=== PATIENT | female | born 1955 | race American Indian/Alaskan Native ===

== ENCOUNTER 2020-09-25 12:17 | Outpatient (REF) | payer MEDICARE, MEDICAID, SELFPAY | END 2020-09-25 12:18 | disposition home or self-care (01) | LOC: HO.LAB 12:17 | PROVIDERS: PCP Internal Medicine; Visit Provider Internal Medicine | DX: Z20.828 Contact with and (suspected) exposure to other viral communicable diseases (principal) | CPT/HCPCS: C9803; U0003 ==

== ENCOUNTER 2022-07-18 12:07 | Outpatient (REF) | payer MEDICARE, MEDICAID, SELFPAY ==
--- NOTE | 2022-07-18 16:43 | MHC.AU.HAS ---
Hearing Aid Evaluation Date of Visit: 07/18/22 Svp Programmatic Tv Used: Albanian- In Person Historical Information: Description of Hearing: Right ear - Borderline normal sloping to severe sensorineural hearing loss with 92% speech understanding Left ear - Moderate to severe mixed hearing loss with 84% speech discrimination Current personal amplification information, if applicable: NONE Summary: Due to the significant asymmetric hearing loss, patient is experiencing difficulty understanding speech. Medical clearance ENT in chart. Advise binaural hearing aids to better facilitate communication. Discussed and showed examples of appropriate styles of hearing aids. Patient would like to try custom [id number] hearing aids. Hearing Aid Prescription: Based on the individual?s shared listening needs, communication environments, dexterity, desire for connectivity, and personal preferences, the following prescription for amplification has been made: Right ear: Extrusion Utility Worker: Phonak Model: Virto P 70-312 Battery Size: 312 Color: Soto Industrial Refrigeration Mechanic: Medium Left ear: Extrusion Utility Worker: Phonak Model: Virto P 70-312 Battery Size: 312 Color: Soto Industrial Refrigeration Mechanic: Super Power Action Taken/Action Needed: [place] Impressions Taken Hearing Instrument Fitting to be scheduled when materials arrive Primary Diagnosis: H90.3 Bilateral Sensorineural Hearing Loss Signature:Provider: Krystian Dallas, CCC-A
== END 2022-07-18 12:08 | disposition home or self-care (01) ==
LOC: HO.SH 12:07
PROVIDERS: Visit Provider Internal Medicine
DX: Z46.1 Encounter for fitting and adjustment of hearing aid (principal); H90.3 Sensorineural hearing loss, bilateral
CPT/HCPCS: 92591; V5275

== ENCOUNTER 2022-09-05 10:04 | Outpatient (REF) | payer MEDICARE, MEDICAID, SELFPAY | END 2022-09-05 10:05 | disposition home or self-care (01) | LOC: HO.HAP 10:04 | PROVIDERS: Visit Provider Internal Medicine | DX: Z46.1 Encounter for fitting and adjustment of hearing aid (principal); H90.3 Sensorineural hearing loss, bilateral | CPT/HCPCS: V5011; V5020; V5160; V5259; V5266 ==

== ENCOUNTER 2022-09-19 12:33 | Outpatient (REF) | payer MEDICARE, MEDICAID, SELFPAY | END 2022-09-19 12:34 | disposition home or self-care (01) | LOC: HO.HAP 12:33 | PROVIDERS: Visit Provider Internal Medicine | DX: Z13.89 Encounter for screening for other disorder (principal) ==

== ENCOUNTER 2023-05-05 10:13 | Outpatient (REF) | payer MEDICARE, MEDICAID, SELFPAY ==
[2023-05-05 10:27] LABS: MANUAL DIFF FLAG NO
[2023-05-05 11:08] LABS: Basophils Absolute Auto 0.1 X10*3/uL (0.0-0.2); Basophils Percent Auto 0.7 % (0-2); Eosinophils Absolute Auto 0.3 X10*3/uL (0.0-0.4); Eosinophils Percent Auto 3.7 % (0-4); Hematocrit 44.2 % (37.0-47.0); Hemoglobin 14.1 g/dl (12.0-16.0); Imm Gran Abs Auto 0.04 X10*3/uL (0.00-0.03); Imm Gran Pct Auto 0.4 % (0.0-0.4); Lymphocytes Absolute Auto 2.7 X10*3/uL (1.2-4.9); Lymphocytes Percent Auto 30.3 % (20-40); Mean Corpuscular HGB Conc 31.9 g/dl (31.0-35.0); Mean Corpuscular Hemoglobin 28.1 pg (27.0-33.0); Mean Corpuscular Volume 88.2 fL (80.0-98.0); Mean Platelet Volume 11.7 fL (9.4-12.3); Monocytes Absolute Auto 0.6 X10*3/uL (0.1-1.2); Monocytes Percent Auto 6.9 % (2-11); Neutrophils Absolute Auto 5.2 x10*3/uL (2.0-8.3); Platelet Count 272 X10*3/uL (160-400); Red Blood Count 5.01 X10*6/uL (4.20-5.50); Red Cell Distribution Width 13.8 % (11.0-16.0)
[2023-05-05 11:51] LABS: Alanine Aminotransferase 13 U/L (0-31); Alkaline Phosphatase 109 U/L (39-117); Anion Gap 14 (12-20); Aspartate Amino Transferase 18 U/L (5-31); Bilirubin Total 0.6 mg/dL (0.0-1.0); Blood Urea Nitrogen 16 mg/dL (9-16); Calcium 9.5 mg/dL (8.4-10.2); Carbon Dioxide 25 mmol/L (22-29); Chloride 105 mmol/L (96-108); Cholesterol 176 mg/dL; Estimated Glomerular Filt Rate > 60; Glucose Fasting 102 mg/dL (60-99); HDL Cholesterol 46 mg/dL; LDL Cholesterol Calculated 98 mg/dl; Potassium 3.8 mmol/L (3.3-5.1); Sodium 140 mmol/L (135-145); Total Protein 7.1 g/dL (6.5-8.0); Triglycerides 160 mg/dL
[2023-05-05 12:11] LABS: TSH reflex Free T4 2.16 uIU/mL (0.32-4.0); Vitamin D 25-OH Total 39.4 ng/mL (>30)
[2023-05-05 12:17] LABS: Folate 13.7 ng/mL (> or = 4.0); Vitamin B12 278 pg/mL (200-900)
== END 2023-05-05 10:14 | disposition home or self-care (01) ==
LOC: HO.LAB 10:13
PROVIDERS: PCP Nurse Practitioner Family; Visit Provider Nurse Practitioner Family
DX: I10 Essential (primary) hypertension (principal); E11.40 Type 2 diabetes mellitus with diabetic neuropathy, unspecified; E78.5 Hyperlipidemia, unspecified
CPT/HCPCS: 36415; 80053; 80061; 82306; 82607; 82746; 84443; 85025

== ENCOUNTER 2023-05-08 11:35 | Outpatient (REF) | payer MEDICARE, MEDICAID, SELFPAY ==
[2023-05-08 14:26] LABS: Microalbum/Creatinine Ratio Ur 12.6 ug/mg cr
== END 2023-05-08 11:36 | disposition home or self-care (01) ==
LOC: HO.LNP 11:35
PROVIDERS: Visit Provider Nurse Practitioner Family
DX: E11.9 Type 2 diabetes mellitus without complications (principal)
CPT/HCPCS: 82043

== ENCOUNTER 2023-07-23 10:02 | Outpatient (REF) | payer MEDICARE, MEDICAID, SELFPAY | END 2023-07-23 10:03 | disposition home or self-care (01) | LOC: HO.HAP 10:02 | PROVIDERS: Visit Provider Nurse Practitioner Family | DX: Z46.1 Encounter for fitting and adjustment of hearing aid (principal); H90.3 Sensorineural hearing loss, bilateral | CPT/HCPCS: V5266 ==

== ENCOUNTER 2023-09-16 10:39 | Outpatient (AMB) | payer MEDICARE, MEDICAID, SELFPAY ==
--- NOTE | 2023-09-16 10:44 | MHC.OFFVIS ---
Intake Vital Signs 09/16/23 10:47 Height 4 ft 11 in Weight 180 lb 12.465 oz BMI 36.5 BP 116/70 Blood Pressure Location Lt brachial Position Sitting Pulse 68 Intake Visit Reasons: [employer]/[place]/hypertension Intake Note: NPV w/ EKG Counseling Center Director Required: No Accompanied by: Daughter Allergies sulfamethoxazole Allergy (Unknown, Verified 09/16/23 10:48) Rash Medication List - Last Reconciled 09/16/23 by Abdi Soriano MD aspirin (Adult Low Dose Aspirin) 81 mg PO DAILY atorvastatin 40 mg PO DAILY dulaglutide (Trulicity) 1.5 mg subcut QWEEK insulin detemir U-100 15 units (0.15 mL) subcut BEDTIME metformin 850 mg PO TID metoprolol succinate ER 100 mg PO DAILY nifedipine ER 60 mg PO DAILY pregabalin 100 mg PO TID HPI HPI Comments History of Present Illness Details Rossy is here for consultation regarding coronary artery disease. [place] [facility] [place] and has [place] here couple of years [place]. 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 Not seen him in the last few years. She states she had a heart attack around 22 years ago, 2000 or so. After that, apparently underwent coronary bypass surgery at [facility]. She states she did not have a formal sternotomy but rather had an incision below the left breast. Overall, has been doing okay for several years. More recently, she is noticing shortness of breath with activity. This is a frequent issue. No clear-cut angina. Main risk factors. Daughter is here for the appointment and is translating. Appropriate form signed. [facility] Medical History (Updated 09/16/23 @ 11:02 by Abdi Soriano MD) Atherosclerotic cardiovascular disease Hypovitaminosis D Dyslipidemia Essential hypertension Diabetes mellitus Surgical History History of cataract surgery History of section History of laparoscopic cholecystectomy History of tubal ligation History of shoulder surgery S/P CABG x 1 Family History Father Diabetes Mother CVD (cardiovascular disease) Myocardial infarction Son No problems noted. Daughter No problems noted. Social History Alcohol intake: never Patient Tobacco Use Status: Never used Tobacco Cognitive needs: No Hearing needs: No Vision needs: No Review of Systems Const Denies chills, Denies daytime sleepiness, Denies fatigue, Denies fever(s), Denies frequent falls, Denies night sweats, Denies snoring, Denies weakness, Denies weight gain and Denies weight loss Eyes Denies loss of vision ENT Denies dizziness and Denies hearing loss Card Denies chest pain, Denies chest pain with activity, Denies syncope, Denies rapid heart rate, Denies edema, Denies claudication, Denies lightheadedness, Denies palpitations, Denies dyspnea on exertion and Denies orthopnea Resp Denies cough, Denies excessive phlegm production, Denies dyspnea on exertion, Denies snoring and Denies wheezing GI Denies abdominal pain, Denies hematochezia, Denies change in bowel habits, Denies change in stool character, Denies heartburn, Denies nausea and Denies vomiting Denies hematuria, Denies urinary frequency and Denies dysuria Musc Denies arthralgias, Denies muscle weakness, Denies numbness and Denies tingling Skin/Breast Denies nail changes and Denies rash Neuro Denies Abnormal speech present, Denies dizziness, Denies syncope, Denies frequent falls, Denies loss of vision, Denies memory loss, Denies numbness, Denies tingling and Denies weakness Psych Denies depression and Denies memory loss Endo Denies fatigue and Denies palpitations Aller/Immun Denies wheezing Physical Exam Vital Signs: Last Vital Signs Pulse 68 09/16/23 10:47 BP 116/70 09/16/23 10:47 BMI result Body Mass Index 36.5 Const General: comfortable and no acute distress Orientation/consciousness: patient oriented x3 HEENT Other: Unremarkable Head: Yes normal to inspection Neck Neck: Yes normal visual inspection Chest Chest palpation & inspection: normal inspection of the chest Resp Auscultation: clear to auscultation bilaterally Cardio Palpation: normal PMI Heart sounds: S1 normal heart sound present, S2 normal heart sound present, no gallops, no murmurs and no rubs GI Palpation (GI): Soft to palpation Back/Spine/Pelvis Other: unremarkable Skin General skin exam: no rashes or lesions noted Neuro General: patient oriented x3 Speech: No Abnormal speech present Extrem General: Yes normal to inspection Psych Mental Status: mental status grossly normal Office Procedures EKG Details: EKG with sinus rhythm at 68/Min; nonspecific ST-T changes; [place]. [id number], Complete Assessment & Plan Assessment & Plan (1) Atherosclerotic cardiovascular disease: Code(s): I25.10 - Atherosclerotic heart disease of [place] coronary artery without angina pectoris (2) S/P CABG x 1: Comment: 2000 Code(s): Z95.1 - Presence of aortocoronary bypass graft (3) Diabetes mellitus: Code(s): E11.9 - Type 2 diabetes mellitus without complications Qualifiers: Diabetes mellitus complication status: without complication Diabetes mellitus intermediate insulin use: without buttermilk drier operator use Diabetes mellitus type: type 2 Qualified Code(s): E11.9 - Type 2 diabetes mellitus without complications (4) Essential hypertension: Code(s): I10 - Essential (primary) hypertension (5) Dyslipidemia: Code(s): E78.5 - Hyperlipidemia, unspecified Plan Coronary disease, remote bypass surgery, multiple risk factors, shortness of breath. Will assess further with echocardiogram and stress perfusion imaging study. Will need to contact her plant technical specialist from [place] for records- Dr.Davor Velazquez- per daughter. Follow-up after the above. Orders: Orders CA echo transthoracic complete Today I25.10 - Atherosclerotic heart disease of [place] coronary artery without angina pectoris NM cardiolite stress test Today I25.10 - Atherosclerotic heart disease of [place] coronary artery without angina pectoris, R07.2 - Precordial pain CA stress test Today I25.10 - Atherosclerotic heart disease of [place] coronary artery without angina pectoris, R07.2 - Precordial pain Coding Level of Care Code New Pt Level 4 (07471) Diagnoses Atherosclerotic cardiovascular disease I25.10 S/P CABG x 1 Z95.1 Type 2 diabetes mellitus without complication, without long-term current use of insulin E11.9 Diabetes mellitus complication status: without complication Diabetes mellitus buttermilk drier operator insulin use: without intermediate use Diabetes mellitus type: type 2 Essential hypertension I10 Dyslipidemia E78.5 CPT Codes EKG - CPT: 94182-[id number], Complete ([id number])
[2023-09-16 10:47] VITALS: BP 116/70; PULSE 68; BMI 36.5
== END 2023-09-16 11:12 | disposition home or self-care (01) ==
PROVIDERS: PCP Nurse Practitioner Family; Visit Provider Internal Medicine
DX: I25.10 Atherosclerotic heart disease of native coronary artery without angina pectoris (principal); Z95.1 Presence of aortocoronary bypass graft; E11.9 Type 2 diabetes mellitus without complications; I10 Essential (primary) hypertension; E78.5 Hyperlipidemia, unspecified
CPT/HCPCS: 93010; 99204

== ENCOUNTER → 2023-09-16 10:39 | Outpatient (BNVA) | payer MEDICARE, MEDICAID, SELFPAY | PROVIDERS: PCP Nurse Practitioner Family; Visit Provider Internal Medicine | DX: I25.10 Atherosclerotic heart disease of native coronary artery without angina pectoris (principal); I10 Essential (primary) hypertension; E78.5 Hyperlipidemia, unspecified; E11.9 Type 2 diabetes mellitus without complications; Z95.1 Presence of aortocoronary bypass graft | CPT/HCPCS: 93005; 99202 ==

== ENCOUNTER → 2023-12-28 09:52 | Outpatient (REF) | payer MEDICARE, MEDICAID, SELFPAY ==
--- NOTE | ~2023-12-28 | NM_ITS ---
Exercise Myocardial perfusion study Indication: Precordial chest pain Technique: The patient was brought in for an exercise perfusion study on 12/28/2023. Patient performed exercise as per Chris protocol and was injected 30 mCi of sestamibi was given intravenously one target HR was achieved. Images were obtained using the SPECT gamma camera interlaced with the gating device. Images were obtained in supine position. Resting perfusion study was performed on 12/31/2023. Patient was administered 30 mCi of sestamibi intravenously at rest. Images were then obtained in supine position. Images obtained with and without CT attenuation. Total DLP 107 mGy-cm. Images were processed with the software and compared side to side in short axis, horizontal long axis and vertical long axis views. Findings: The stress perfusion study showed non attenuated images show mildly reduced uptake in the anterior anterolateral wall of the LV myocardium. Remainder of the LV myocardium is normally perfused. Attenuation corrected images show normal uptake of radiotracer in all segments of LV myocardium. The gated study shows normal LV systolic function with calculated LVEF of 74%. LV cavity is normal in size. The gated study shows normal systolic wall thickening and contraction of all segments. There is no transient ischemic dilation. Resting study shows both attenuated as well as non attenuated corrected images show normal uptake of radiotracer in all segments of LV myocardium. Gating at rest reveals normal systolic wall motion with ejection fraction at 70%. The findings are consistent with discrepant the findings are suggestive of shifting breast attenuation artifact. Overall likely normal myocardial perfusion. NM/NM cardiolite stress test Impression: 1. Normal myocardial perfusion 2. Gated LVEF is 70% 3. Transient ischemic dilatation not present Stress EKG is negative for ischemia
--- NOTE | 2023-12-28 09:59 | CA_ITS ---
Acquisition Time: 2023-12-28 10:17:28 Total Exercise Time: 00:04:59 Test Indications: PRECODIAL CHEST PAIN Medications: ASA ATORVASTATIN METOPROLOL METFORMIN INSULIN Protocol: ZARIA Max HR: 137 BPM 91% of Pred: 150 BPM Max BP: 140/070 mmHG Max Work Load: 4.6 METS Exercise stress test exercose 4 min 59 sec of Zaria protocol achieving 88% MPHR with request to stop due to fatigue and shortness of breath, with no chest pain, with moderate SOB, without arrhthymias, with normotensive response to exercise,. with baseline abnormalities, no change noted from baseline. Breathing returned to normal with rest. Nuclear images pending. Test reviewed with Dr. Serrano Referred By: Abdi Soriano Overread By: Alecia Arboleda
== END ==
LOC: HO.CARD 09:52
PROVIDERS: Visit Provider Internal Medicine
DX: R07.2 Precordial pain (principal); I25.10 Atherosclerotic heart disease of native coronary artery without angina pectoris
CPT/HCPCS: 78452; 93017; A9500

== ENCOUNTER → 2023-12-28 09:59 | Outpatient (BNV) | payer MEDICARE, MEDICAID, SELFPAY | PROVIDERS: Visit Provider Nurse Practitioner | DX: R07.2 Precordial pain (principal); R06.02 Shortness of breath | CPT/HCPCS: 78452; 93016; 93018 ==

== ENCOUNTER → 2024-01-15 13:58 | Outpatient (REF) | payer MEDICARE, MEDICAID, SELFPAY ==
--- NOTE | 2024-01-15 14:02 | CA_ITS ---
Transthoracic Echocardiogram Patient (Last, First, Middle): Rossy Orlando, Gender: Female Date of : 1955 Age: 68 Procedure Date: 01/15/2024 Procedure Type: Transthoracic Echocardiogram Location: OP Height: 149.86 cm Weight: 83.92 kg BSA: 1.78 m2 Heart Rate: 53 bpm BP: 125 / 80 mmHg Personalized Living Manager Nurse: MICHA Referring MD: Abdi Soriano MD Symptoms: I25.10 - Atherosclerotic heart disease of [place] coronary artery without... Study Quality: Fair ECG Rhythm: Bradycardia Conclusions: - Normal left ventricular size, thickness, systolic function, and wall motion. The visually estimated ejection fraction is between 60-65%. Abnormal diastolic function is noted. Spectral Doppler is indicative of an impaired relaxation filling pattern. Elevated filling pressures. - Normal right ventricular cavity size. There is low normal right ventricular systolic function. Findings Left Ventricle Normal left ventricular size, thickness, systolic function, and wall motion. The visually estimated ejection fraction is between 60-65%. Abnormal diastolic function is noted. Spectral Doppler is indicative of an impaired relaxation filling pattern. Elevated filling pressures. Right Ventricle Normal right ventricular cavity size. There is low normal right ventricular systolic function. Atria The left atrium is normal in size. The right atrium is normal in size. Aortic Valve Normal aortic valve structure and function. There is no aortic valve stenosis. There is no aortic valve regurgitation. Mitral Valve The mitral valve appears normal. There is trace mitral valve regurgitation. There is no mitral valve stenosis. Pulmonic Valve The pulmonic valve is normal. There is no pulmonic valve regurgitation. Tricuspid Valve Normal tricuspid valve structure. There is trace tricuspid valve regurgitation. Normal right atrial pressure. There is no evidence of pulmonary hypertension. Great Vessels All visible segments of the aorta are normal in size. Venous The inferior vena cava is normal in size and collapses less than 50% with inspiration. Pericardium/Pleural There is no evidence of pericardial effusion. Prior Study Comparison No prior study available for comparison. Measurements 2D Linear Measurements IVSd: 0.63 0.6-0.9/0.6-1.0 cm LVIDd: 4.02 3.9-5.3/4.2-5.9 cm LVIDd Index: 2.26 2.4-3.2/2.2-3.1 cm/m2 LVIDs: 2.09 2.0-3.6 cm LVPWd: 0.72 0.7-1.1 cm LA Diam: 3.30 2.7-3.8/3.0-4.0 cm LAIDs Index: 1.85 1.5-2.3 cm/m2 LV Mass: 93.75 67-162/88-224 g LV Mass Index: 52.67 43-95/49-115 g/m2 LVOT Diam: 1.90 3.0+(-)1.3 cm 2D Systolic Function EF 4C: 63.80 >55% EF 2C: 65.60 >55% EF BiP: 64.90 >55% Mitral Valve MV Pk E: 1.08 MV PK A: 1.18 MV Decel Time: 258.00 E/A: 0.90 E'Lateral: 7.29 E'Medial: 5.44 E/E' Med: 19.90 E/E' Lat: 14.80 PHT: 76.00 MVA PHT: 2.89 Decel [place]: 4.20 Aortic Valve AoV Pk Dwain: 1.40 AoV Mn Dwain: 1.02 AoV VTI: 0.37 AoV Pk Grad: 8.00 Aov Mn Grad: 5.00 FABI Cont.VTI: 1.77 LVOT LVOT Pk Dwain: 0.82 LVOT Mn Dwain: 0.61 LVOT VTI: 0.23 LVOT Pk Grad: 3.00 LVOT Mn Grad: 2.00 LVOT Diam: 1.90 LVOT Area: 2.84 Diastolic Function MV Pk E: 1.08 MV Pk A: 1.18 E/A: 0.90 E'Medial: 5.44 E/E' Med: 19.90 E' Laterial: 7.29 E/E' Lat: 14.80 Right Ventricle TAPSE (mm): 16.50 TVS' Dwain: 7.72 Tricuspid Valve TR Pk Dwain: 1.89 TR Pk Grad: 14.00 RA Press: 3.00 RVSP: 17.00 Great Vessels Aorta Sinus of Valsalva: 2.90 2.0-3.5 cm Ao Asc: 3.00 2.1-3.4 cm Pulmonary Valve PV Pk Dwain: 0.94 Peak PV Grad: 4.00 Updated in Other Vendor System with Status of Final Lopez Benitez MD electronically signed on 01/17/2024 12:21:26 PM with status of Final
== END ==
LOC: HO.CARD 13:58
PROVIDERS: PCP Nurse Practitioner Family; Visit Provider Internal Medicine
DX: I25.10 Atherosclerotic heart disease of native coronary artery without angina pectoris (principal)
CPT/HCPCS: 93306

== ENCOUNTER → 2024-01-15 14:02 | Outpatient (BNV) | payer MEDICARE, MEDICAID, SELFPAY | PROVIDERS: PCP Nurse Practitioner Family; Visit Provider Internal Medicine Cardiovascular Disease | DX: I25.10 Atherosclerotic heart disease of native coronary artery without angina pectoris (principal) | CPT/HCPCS: 93306 ==

== ENCOUNTER 2024-01-21 13:58 | Outpatient (AMB) | payer MEDICARE, MEDICAID, SELFPAY ==
--- NOTE | 2024-01-21 14:15 | MHC.OFFVIS ---
Intake Vital Signs 01/21/24 14:16 Height 4 ft 11 in Weight 184 lb 4.903 oz BMI 37.2 BP 130/68 Blood Pressure Location Lt brachial Position Sitting Pulse 70 Intake Visit Reasons: follow up cardaic testing Intake Note: follow upo cardaic testing PT feels good Trawl Net Maker Required: Yes Trawl Net Maker Name: Kate Accompanied by: Daughter Allergies sulfamethoxazole Allergy (Unknown, Verified 01/21/24 14:45) Rash Medication List - Last Reconciled 01/21/24 by Alecia Arboleda NP aspirin (Adult Low Dose Aspirin) 81 mg PO DAILY atorvastatin 40 mg PO DAILY dulaglutide (Trulicity) 1.5 mg subcut QWEEK insulin detemir U-100 15 units (0.15 mL) subcut BEDTIME metformin 850 mg PO TID metoprolol succinate ER 100 mg PO DAILY nifedipine ER 60 mg PO DAILY pregabalin 100 mg PO TID HPI HPI Comments History of Present Illness Details 68-year-old female presents today for a follow up after testing. She denies any chest pains or shortness of breath. She reports she feels fatigued but her diabetes has been up and down. She does not use her CPAP. [facility] Medical History Atherosclerotic cardiovascular disease Hypovitaminosis D Dyslipidemia Essential hypertension Diabetes mellitus Surgical History History of cataract surgery History of section History of laparoscopic cholecystectomy History of tubal ligation History of shoulder surgery S/P CABG x 1 Family History Father Diabetes Mother CVD (cardiovascular disease) Myocardial infarction Son No problems noted. Daughter No problems noted. Social History Alcohol intake: never Patient Tobacco Use Status: Never used Tobacco Cognitive needs: No Hearing needs: No Vision needs: No Review of Systems Const Denies weakness ENT Denies dizziness Card Denies chest pain, Denies chest pain with activity, Denies syncope, Denies rapid heart rate, Denies pedal edema, Denies edema, Denies leg edema, Denies lightheadedness, Denies palpitations, Denies dyspnea, Denies dyspnea on exertion and Denies orthopnea Resp Denies cough, Denies dyspnea and Denies dyspnea on exertion GI Denies hematochezia and Denies change in stool character Musc Denies abnormal gait, Denies muscle cramps, Denies muscle weakness, Denies numbness, Denies radiating pain into limb and Denies tingling Neuro Denies abnormal gait, Denies dizziness, Denies syncope, Denies numbness, Denies tingling and Denies weakness Endo Denies palpitations Physical Exam Vital Signs: Last Vital Signs Pulse 70 01/21/24 14:16 BP 130/68 01/21/24 14:16 BMI result Body Mass Index 37.2 Const General: healthy appearing and no acute distress Orientation/consciousness: patient oriented x3 HEENT Head: Yes normal to inspection Eyes General: appearance normal, both eyes and all related structures Neck Neck: Yes normal visual inspection Chest Chest palpation & inspection: normal inspection of the chest Resp Effort & Inspection: normal respiratory effort Auscultation: clear to auscultation bilaterally Cardio Jugular venous distension: no JVD Palpation: normal PMI Rate: regular rate Rhythm: regular rhythm Heart sounds: S1 normal heart sound present, S2 normal heart sound present, no click, no gallops, no murmurs and no rubs GI Inspection: Yes normal to inspection Palpation (GI): Soft to palpation Skin General skin exam: no rashes or lesions noted Neuro General: patient oriented x3 Extrem General: Yes normal to inspection Psych Appearance: grossly normal Results Reviewed Results Reviewed: Echo: Conclusions: - Normal left ventricular size, thickness, systolic function, and wall motion. The visually estimated ejection fraction is between 60-65%. Abnormal diastolic function is noted. Spectral Doppler is indicative of an impaired relaxation filling pattern. Elevated filling pressures. - Normal right ventricular cavity size. There is low normal right ventricular systolic function. NM/NM cardiolite stress test Impression: 1. Normal myocardial perfusion 2. Gated LVEF is 70% 3. Transient ischemic dilatation not present Assessment & Plan Assessment & Plan (1) Atherosclerotic cardiovascular disease: Code(s): I25.10 - Atherosclerotic heart disease of [place] coronary artery without angina pectoris Plan patient reports chest pain and shortness of breath resolved. Nuclear imaging shows normal myocardial perfusion. Echo showed normal LV size, systolic function, and wall motion. Encouraged CPAP use. On aspirin, statin, and beta tammie Coding Level of Care Code Est Pt Level 3 (93701) Diagnoses Atherosclerotic cardiovascular disease I25.10
[2024-01-21 14:16] VITALS: BP 130/68; PULSE 70; BMI 37.2
== END 2024-01-21 14:50 | disposition home or self-care (01) ==
PROVIDERS: Visit Provider Nurse Practitioner
DX: I25.10 Atherosclerotic heart disease of native coronary artery without angina pectoris (principal)
CPT/HCPCS: 99213

== ENCOUNTER → 2024-01-21 13:58 | Outpatient (BNVA) | payer MEDICARE, MEDICAID, SELFPAY | PROVIDERS: Visit Provider Nurse Practitioner | DX: I25.10 Atherosclerotic heart disease of native coronary artery without angina pectoris (principal); I10 Essential (primary) hypertension | CPT/HCPCS: 99212 ==

== ENCOUNTER 2024-07-27 10:59 | Outpatient (AMB) | payer MEDICARE, MEDICAID, SELFPAY ==
[2024-07-27 11:01] VITALS: BP 156/90; PULSE 63; BMI 36.7
--- NOTE | 2024-07-27 11:01 | MHC.OFFVIS ---
Vital Signs 07/27/24 11:01 Height 4 ft 11 in Weight 181 lb 10.574 oz BMI 36.7 BP 156/90 H Blood Pressure Location Lt brachial Position Sitting Pulse 63 Intake Visit Reasons: 6m follow up Latex Ribbon Machine Operator Required: Yes Latex Ribbon Machine Operator Services: Latex Ribbon Machine Operator Offered & Declined Latex Ribbon Machine Operator Name: Veronica-daughter Accompanied by: Daughter Allergies sulfamethoxazole Allergy (Unknown, Verified 01/21/24 14:45) Rash Medication List - Last Reconciled 07/27/24 by Abdi Soriano MD aspirin (Adult Low Dose Aspirin) 81 mg PO DAILY atorvastatin 40 mg PO DAILY carvedilol 6.25 mg PO BID dulaglutide (Trulicity) 1.5 mg subcut QWEEK insulin detemir U-100 15 units (0.15 mL) subcut BEDTIME metformin 850 mg PO TID metformin 500 mg PO BID nitroglycerin 0.4 mg sublingual Q5M PRN pregabalin 100 mg PO TID spironolactone 25 mg PO DAILY HPI Comments Details: Rossy returns for follow-up. Recently seen in consultation regarding coronary disease. She was living in the [place] part [facility] but has moved here couple of years ago. History of coronary artery bypass surgery from 2000. Apparently, had a LOPEZ to diagonal to LAD. Last cardiac catheterization in 2016 which is reported to have a patent LOPEZ, small diameter, with competitive flow from LAD. Lad had a proximal 70% stenosis. Overall, she states she generally feels fine. No clear angina. She apparently gets episodes of feeling dizzy versus vertigo. Last happened few days ago. This has been a long-term issue per daughter. [facility] Medical History Atherosclerotic cardiovascular disease Hypovitaminosis D Dyslipidemia Essential hypertension Diabetes mellitus Surgical History History of cataract surgery History of section History of laparoscopic cholecystectomy History of tubal ligation History of shoulder surgery S/P CABG x 1 Family History Father Diabetes Mother CVD (cardiovascular disease) Myocardial infarction Son No problems noted. Daughter No problems noted. Social History Alcohol intake: never Patient Tobacco Use Status: Never used Tobacco Cognitive needs: No Hearing needs: No Vision needs: No Review of Systems Const Denies chills, Denies fatigue, Denies fever(s), Denies weight gain and Denies weight loss ENT Denies dizziness Card Denies chest pain, Denies leg edema, Denies lightheadedness, Denies palpitations, Denies dyspnea on exertion, Denies orthopnea and Denies other Resp Denies cough and Denies dyspnea on exertion GI Denies hematochezia and Denies change in stool character Musc Denies abnormal gait, Denies muscle weakness, Denies numbness, Denies radiating pain into limb and Denies tingling Neuro Denies abnormal gait, Denies dizziness, Denies numbness and Denies tingling Endo Denies fatigue and Denies palpitations Physical Exam Vital Signs: Last Vital Signs Pulse 63 07/27/24 11:01 BP 156/90 H 07/27/24 11:01 BMI result Body Mass Index 36.7 Const General: comfortable and no acute distress Orientation/consciousness: patient oriented x3 HEENT Other: Unremarkable Head: Yes normal to inspection Neck Neck: Yes normal visual inspection Chest Chest palpation & inspection: normal inspection of the chest Resp Auscultation: clear to auscultation bilaterally Cardio Palpation: normal PMI Heart sounds: S1 normal heart sound present, S2 normal heart sound present, no gallops, no murmurs and no rubs GI Palpation (GI): Soft to palpation Back/Spine/Pelvis Other: unremarkable Skin General skin exam: no rashes or lesions noted Neuro General: patient oriented x3 Extrem General: Yes normal to inspection Psych Mental Status: mental status grossly normal Office Procedures EKG Details: EKG with underlying sinus rhythm at 63/Min; no significant ST-T changes and otherwise [place]remark[place] [id number], Complete Assessment & Plan Assessment & Plan (1) Atherosclerotic cardiovascular disease: Code(s): I25.10 - Atherosclerotic heart disease of [place] coronary artery without angina pectoris Category: Medical (2) S/P CABG x 1: Comment: 2000 Code(s): Z95.1 - Presence of aortocoronary bypass graft Category: Surgical (3) Diabetes mellitus: Code(s): E11.9 - Type 2 diabetes mellitus without complications Category: Medical Qualifiers: Diabetes mellitus type: type 2 Diabetes mellitus intermediate insulin use: without superintendent container terminal use Diabetes mellitus complication status: without complication Qualified Code(s): E11.9 - Type 2 diabetes mellitus without complications (4) Essential hypertension: Code(s): I10 - Essential (primary) hypertension Category: Medical (5) Dyslipidemia: Code(s): E78.5 - Hyperlipidemia, unspecified Category: Medical Plan Prior cardiology note reviewed. CABG from 2000; lopez to diagonal to LAD. Cardiac catheterization 2016 with patent LOPEZ -small diameter, with competitive flow from LAD; lad with proximal 70% stenosis. Per recent testing, echocardiogram with LVEF of 60-65%; evidence of diastolic dysfunction with elevated filling pressures; no significant valvular findings. In the stress test, she was able to reach up to 4.6 METS, reached target heart rate, had shortness of breath but no angina. No EKG evidence of ischemia. Perfusion imaging was unremarkable. Overall, established coronary disease but no clear-cut ischemia or other major abnormalities. She does have diastolic dysfunction which is likely related to underlying ischemic heart disease as well as hypertension. Clinically, she seems euvolemic. Mainly risk factor modification including adequate control of diabetes, hypertension, dyslipidemia. Per primary care note, meds are being adjusted including increase in carvedilol dose. No further changes made today to avoid confusion. Follow-up lipids have been ordered through her PCP. Otherwise, check carotid ultrasound. Plan discussed with daughter. Follow-up in 6 months. Orders: Orders US carotid duplex BI Today Abdi Soriano MD I65.23 - Occlusion and stenosis of bilateral carotid arteries Medications: Changed From metformin 850 mg PO TID 90 tabs 0RF E11.9 - Type 2 diabetes mellitus without complications To metformin 850 mg PO TID E11.9 - Type 2 diabetes mellitus without complications Red Mir MD Coding Level of Care Code Est Pt Level 4 (01157) Diagnoses Atherosclerotic cardiovascular disease I25.10 S/P CABG x 1 Z95.1 Type 2 diabetes mellitus without complication, without long-term current use of insulin E11.9 Diabetes mellitus type: type 2 Diabetes mellitus intermediate insulin use: without superintendent container terminal use Diabetes mellitus complication status: without complication Essential hypertension I10 Dyslipidemia E78.5 CPT Codes EKG - CPT: 84004-[id number], Complete ([id number])
== END 2024-07-27 11:29 | disposition home or self-care (01) ==
PROVIDERS: PCP Nurse Practitioner Family; Visit Provider Internal Medicine
DX: I25.10 Atherosclerotic heart disease of native coronary artery without angina pectoris (principal); Z95.1 Presence of aortocoronary bypass graft; E11.9 Type 2 diabetes mellitus without complications; I10 Essential (primary) hypertension; E78.5 Hyperlipidemia, unspecified
CPT/HCPCS: 93010; 99214

== ENCOUNTER → 2024-07-27 10:59 | Outpatient (BNVA) | payer MEDICARE, MEDICAID, SELFPAY | PROVIDERS: PCP Nurse Practitioner Family; Visit Provider Internal Medicine | DX: I25.10 Atherosclerotic heart disease of native coronary artery without angina pectoris (principal); I10 Essential (primary) hypertension; E11.9 Type 2 diabetes mellitus without complications; E78.5 Hyperlipidemia, unspecified; Z95.1 Presence of aortocoronary bypass graft | CPT/HCPCS: 93005; 99212 ==

== ENCOUNTER 2024-08-17 10:07 | Outpatient (REF) | payer MEDICARE, MEDICAID, SELFPAY ==
--- NOTE | ~2024-08-17 | US_ITS ---
EXAMINATION: US EXTRACRANIAL CAROTID DUPLEX, BILATERAL CLINICAL INFORMATION: Occlusion and stenosis of bilateral carotid arteries COMPARISON: None available. TECHNIQUE: Real-time ultrasound and Doppler techniques (integrating B-mode 2-D vascular images, Doppler spectral analysis and color-flow Doppler imaging) were utilized to interrogate the extracranial carotid arteries, the vertebral arteries and proximal subclavian arteries bilaterally. The degree of stenosis is determined by criteria similar to NASCET. FINDINGS: Right Side: 1. There is no atherosclerotic plaque seen in the bifurcation/proximal ICA region. 2. The common carotid artery PSV proximally is 99 cm/s and distally 67 cm/s. 3. The proximal internal carotid artery velocities are 70 cm/s systolic and 19 cm/s diastolic. 4. The proximal external carotid artery PSV is 94 cm/s. 5. The vertebral artery shows antegrade flow. 6. The subclavian artery waveforms are normal. Left Side: 1. There is mild atherosclerotic plaque seen in the bifurcation/proximal ICA region. 2. The common carotid artery PSV proximally is 88 cm/s and distally 80 cm/s. 3. The proximal internal carotid artery velocities are 59 cm/s systolic and 19 cm/s diastolic. 4. The proximal external carotid artery PSV is 98 cm/s. 5. The vertebral artery shows antegrade flow. 6. The subclavian artery waveforms are normal. US/US carotid duplex BI IMPRESSION: 1. RIGHT: Normal right internal carotid artery without atherosclerotic plaque or hemodynamically significant stenosis. 2. LEFT: Minimal, non-hemodynamically significant stenosis of the proximal left internal carotid artery corresponding to a 0-49% stenosis by velocity criteria. Electronically signed by: Naheed Florian MD 08/17/2024 12:51 PM EDT
== END 2024-08-17 10:08 | disposition home or self-care (01) ==
LOC: HO.US 10:07
PROVIDERS: PCP Nurse Practitioner Family; Visit Provider Internal Medicine
DX: I65.23 Occlusion and stenosis of bilateral carotid arteries (principal)
CPT/HCPCS: 93880

== ENCOUNTER 2025-01-26 11:09 | Outpatient (AMB) | payer MEDICARE, MEDICAID, SELFPAY ==
--- NOTE | 2025-01-26 11:11 | MHC.OFFVIS ---
Vital Signs 01/26/25 11:15 Height 4 ft 11 in Weight 187 lb 13.341 oz BMI 37.9 BP 130/82 Blood Pressure Location Lt brachial Position Sitting Pulse 63 Pulse Source Pulse Oximeter Intake Visit Reasons: 6 mth f/up carotids Motor Hotel Manager Required: Yes Motor Hotel Manager Language: Assistant Professor Of Drama Services: Motor Hotel Manager Offered & Declined Motor Hotel Manager Name: daughter Accompanied by: Daughter Allergies sulfamethoxazole Allergy (Unknown, Verified 01/21/24 14:45) Rash Medication List - Last Reconciled 01/26/25 by Abdi Soriano MD aspirin (Adult Low Dose Aspirin) 81 mg PO DAILY atorvastatin 40 mg PO DAILY carvedilol 6.25 mg PO BID dulaglutide (Trulicity) 1.5 mg subcut QWEEK insulin detemir U-100 15 units (0.15 mL) subcut BEDTIME metformin 850 mg PO TID metformin 500 mg PO BID nitroglycerin 0.4 mg sublingual Q5M PRN pregabalin 100 mg PO TID spironolactone 25 mg PO DAILY HPI Comments Details: Rossy returns for follow-up regarding coronary disease. She was living in the [place] part [facility] but has moved here. History of coronary artery bypass surgery from 2000. Had a LOPEZ to diagonal to LAD. Last cardiac catheterization in 2016 which is reported to have a patent LOPEZ, small diameter, with competitive flow from LAD. LAD had a proximal 70% stenosis. Since last seen, no new concerns. She feels good. No cardiac symptoms. [facility] Medical History Atherosclerotic cardiovascular disease Hypovitaminosis D Dyslipidemia Essential hypertension Diabetes mellitus Surgical History History of cataract surgery History of section History of laparoscopic cholecystectomy History of tubal ligation History of shoulder surgery S/P CABG x 1 Family History Father Diabetes Mother CVD (cardiovascular disease) Myocardial infarction Son No problems noted. Daughter No problems noted. Social History Alcohol intake: never Patient Tobacco Use Status: Never used Tobacco Cognitive needs: No Hearing needs: No Vision needs: No Review of Systems Const Denies chills, Denies fatigue, Denies fever(s), Denies frequent falls, Denies weakness, Denies weight gain and Denies weight loss ENT Denies dizziness Card Denies chest pain, Denies leg edema, Denies lightheadedness, Denies palpitations, Denies dyspnea and Denies dyspnea on exertion Resp Denies cough, Denies dyspnea and Denies dyspnea on exertion GI Denies hematochezia Musc Denies abnormal gait, Denies muscle weakness, Denies numbness, Denies radiating pain into limb and Denies tingling Neuro Denies abnormal gait, Denies dizziness, Denies frequent falls, Denies numbness, Denies tingling and Denies weakness Endo Denies fatigue and Denies palpitations Physical Exam Vital Signs: Last Vital Signs Pulse 63 01/26/25 11:15 BP 130/82 01/26/25 11:15 BMI result Body Mass Index 37.9 Assessment & Plan Assessment & Plan (1) Atherosclerotic cardiovascular disease: Code(s): I25.10 - Atherosclerotic heart disease of [place] coronary artery without angina pectoris Category: Medical (2) S/P CABG x 1: Comment: 2000 Code(s): Z95.1 - Presence of aortocoronary bypass graft Category: Surgical (3) Diabetes mellitus: Code(s): E11.9 - Type 2 diabetes mellitus without complications Category: Medical Qualifiers: Diabetes mellitus complication status: without complication Diabetes mellitus computer terminal operator insulin use: without long-term use Diabetes mellitus type: type 2 Qualified Code(s): E11.9 - Type 2 diabetes mellitus without complications (4) Essential hypertension: Code(s): I10 - Essential (primary) hypertension Category: Medical (5) Dyslipidemia: Code(s): E78.5 - Hyperlipidemia, unspecified Category: Medical Plan Prior cardiology note reviewed. CABG from 2000; LOPEZ to diagonal to LAD. Cardiac catheterization 2016 with patent LOPEZ -small diameter, with competitive flow from LAD; LAD with proximal 70% stenosis. Per recent testing, echocardiogram with LVEF of 60-65%; evidence of diastolic dysfunction with elevated filling pressures; no significant valvular findings. In the stress test, she was able to reach up to 4.6 METS, reached target heart rate, had shortness of breath but no angina. No EKG evidence of ischemia. Perfusion imaging was unremarkable. Overall, established coronary disease but seems stable. She does have diastolic dysfunction which is likely related to underlying ischemic heart disease as well as hypertension. But clinically, no symptoms or signs of congestive heart failure. Mainly risk factor modification including adequate control of diabetes, hypertension, dyslipidemia. With regard to labs, last LDL 79 mg/dL. Triglycerides 93 mg/dL. Diabetes not well controlled his hemoglobin A1c is 9%. Serum creatinine is 0.9. She states she is getting updated labs next week and asked her to send us a copy. Follow-up in 6 months. Discussed with daughter. Coding Level of Care Code Est Pt Level 4 (04765) Complex EM visit Add On G2211 Diagnoses Atherosclerotic cardiovascular disease I25.10 S/P CABG x 1 Z95.1 Type 2 diabetes mellitus without complication, without long-term current use of insulin E11.9 Diabetes mellitus complication status: without complication Diabetes mellitus long-term insulin use: without computer terminal operator use Diabetes mellitus type: type 2 Essential hypertension I10 Dyslipidemia E78.5
[2025-01-26 11:15] VITALS: BP 130/82; PULSE 63; BMI 37.9
--- OUTSIDE RECORDS SUMMARY | 2025-01-26 13:31 | XMS_ITS | Clinical Summary ---
Author Organization 175 [facility] Address [address] [place] [address] Phone Care Team Providers Care Finished Cloth Examiner Name Role Phone Physician, Pcp Unknown Primary Care Provider Katie vailable Allergies Active Allergy Reactions Criticality Noted Date Comments Lisinopril 05/08/2021 Sulfa (Sulfonamide Antibiotics) 04/19 Medications aspirin 81 mg EC tablet Take 81 mg by mouth daily. Active atorvastatin calcium (LIPITOR ORAL) Take by mouth. Active pen needle, diabetic (BD Ultra-Fine Short Pen Needle) 31 gauge x 5/16 needle B-D ULTRAFINE III SHORT PEN 31G X 8 MM Misc USE WITH LEVEMIR AND TRULICITY DIRECTED 1 Active blood-glucose meter kit by Does not apply route. Active chlorhexidine (HIBICLENS) 4 % external liquid Clean feet twice a day 2 Active cholecalciferol (VITAMIN D-3) 50 mcg (2,000 unit) tablet Take by mouth. Ac tive ciclopirox (PENLAC) 8 % solution Apply daily to nails clean medication residue off of nail plate every 3 days with rubbing alcohol 2 Active clotrimazole (LOTRIMIN) 1 % cream Apply to skin daily for 6 weeks 2 Active diclofenac (VOLTAREN) 1 % topical gel Apply 4 g topically 2 times daily. 1 Active insulin detemir (Levemir FlexPen) 100 unit/mL (3 mL) injection pen INJECT 15 UNITS UNDER THE SKIN DAILY AT BEDTIME 1 Active metformin HCl (METFORMIN ORAL) Take by mouth. Activ e NIFEdipine CC (ADALAT CC) 60 mg 24 hr tablet Take 60 mg by mouth daily. Active pregabalin (LYRICA) 100 mg capsule TAKE 1 CAPSULE BY MOUTH THREE TIMES DAILY 3 Active spironolactone (ALDACTONE) 25 mg tablet See Instructions, TAKE 1 TABLET BY MOUTH DAILY, # 90 tablet, Refills 0, Maintenance, 02/17/23 20:07:00 EDT, Instructions Replace Required Details, Route to Pharmacy Electronically, [id number], 150, cm, 02/17/23 10:41:00 EDT, Height, 8... 3 Active dulaglutide (Trulicity) 1.5 mg/0.5 mL pen injector injection ADMINISTER 1.5 MG UNDER THE SKIN EVERY WEEK 1 Active miconazole (Lotrimin AF) 2 % powder Apply topically 2 (two) times a day for 28 days. 70 g 3 5 02/21/20 25 Active Encounters Date Type Department Care Team Description 01/23/2025 1:45 PM EDT Office Visit Orthopedic Surgery - [address] [phone] Fredy Marshall, DPM Tinea pedis of both feet (Primary Dx); Dermatophytosis of nail; Acquired hammer toe of right foot; Diabetic mononeuropathy simplex (CMS/HCC V24, CMS/HCC V28); Type II diabetes mellitus with peripheral circulatory disorder (CMS/HCC V24, CMS/HCC V28); Primary osteoarthritis of both feet; Hammer toe of left foot from Last 3 Months Surgical History Surgery Date Site/Laterality Comments CHOLECYSTECTOMY PROCEDURE: [facility] LAPAROSCOPY SURG CHOLECYSTECTOMY CARDIAC SURGERY PROCEDURE: HISTORICAL HEART SURGERY(ASD,VSD,VALVES) SHOULDER SURGERY PROCEDURE: HISTORICAL SHOULDER SURGERY SECTION PROCEDURE: HISTORICAL DELIVERY Medical History Medical History Date Comments Essential hypertension DX:Essent ial hypertension Diabetes mellitus type 2, co ntrolled, with complications (CMS/HCC V24, CMS/HCC V28) DX:Diabetes mellitus type 2, controlled, with complications ([facility]) Social History Tobacco Use Types Packs/Day Years Used Date Smoking Tobacco: Never Smokeless Tobacco: Never Tobacco Cessation:Counseling Given: Not Answered Alcohol Use Standard Drinks/Week Comments No 0 (1 standard drink = 0.6 oz pur e alcohol) Comments Unknown Sex and Gender Information Value Date Recorded Sex Assigned at Not on file Legal Sex Female 1:18 AM EST Gender Identity Not on file Sexual Orientation Not on file Obstetrics History Last Filed Vital Signs Vital Sign Reading Time Taken Comments Blood Pressure - - Pulse - - Temperature - - Respiratory Rate - - Oxygen Saturation - - Inhaled Oxygen Concentration - - Weight 85.3 kg (188 lb) 10/25/2024 1:35 PM EST Height 149.9 cm (4' 11.02 ) 10/25/2024 1:[address] Body Mass Index 37.95 10/25/2024 1:35 PM EST Plan of Treatment Upcoming Encounters Date Type Department Care Team (Late st Contact Info) Description 04/26/2025 1:30 PM EDT Office Visit Orthopedic Surgery - [place] [id number] [phone] Fredy Marshall, DPM [address] [id number] Health Maintenance Due Date Last Done Comments Breast Cancer Screening 1955 Diabetes: Annual GFR (Glomerular Filtration Rate) 1955 Diabetes: Annual Foot Exam 1963 Diabetes: Annual Retina Eye Exam 1965 Zoster Vaccines (1 of 2) 2003 RSV Immunization Adult Patients (1 - Risk 60-74 years 1-dose series) 2013 DTaP,Tdap,and Td Vaccines (3 - Td or Tdap) 06/20/2020 06/20/2010, 07/24/1998 Cholesterol Screening (Lipid Panel) 09/21/2022 Colorectal Cancer Screening: Colonoscopy 09/21/2022 Depression Screening 09/21/2022 Falls Risk Assessment 09/21/2022 Hepatitis C Screening 09/21/2022 Medicare Annual Wellness Visit 09/21/2022 Osteoporosis Screening (Bone Density Screening) 09/21/2022 Social Influencers of Health Screening 09/21/2022 COVID-19 Vaccine ( season) 2024 02/17/2022, 09/05/2021, 01/14/2021, Additional history exists Diabetes: Annual Urine Albumin-Creatinine Ratio (uACR) 10/25/2024 Diabetes: Blood Sugar Control Test (HGBA1C) 10/25/2024 Hypertension/CHF/CAD Annual BMP Blood Test 10/25/2024 Influenza Vaccine (Season Ended) 2025 11/04/2023, 09/05/2021, 09/14/2019, Additional history exists MMR Vaccines Aged Out 07/24/1998 No longer eligi ble based on patient's age to complete this topic Pneumococcal Vaccine: 50+ Years Completed 11/04/2023, 08/11/2002 HIB Vaccines Aged Out No longer eligi ble based on patient's age to complete this topic HPV Vaccines Aged Out No longer eligi ble based on patient's age to complete this topic Hepatitis A Vaccines Aged Out No long er eligible based on patient's age to complete this topic Hepatitis B Vaccines Aged Out No long er eligible based on patient's age to complete this topic IPV Vaccines Aged Out No longer eligi ble based on patient's age to complete this topic Meningococcal ACWY Vaccine Aged Out N o longer eligible based on patient's age to complete this topic Meningococcal B Vaccine Aged Out No l onger eligible based on patient's age to complete this topic RSV Immunization Patients Under 20 months Aged Out No longer eligible based on patient's age to complete this topic Varicella Vaccines Aged Out No longer eligible based on patient's age to complete this topic Insurance MEDICAID - [place] MEDICARE Care Teams Finished Cloth Examiner Relationship Specialty Start Date End Date Physician, Pcp Unknown PCP - General 10/10/24
--- OUTSIDE RECORDS SUMMARY | 2025-01-26 13:31 | XMS_ITS | Encounter Summary ---
Author Organization [facility] Address [address] [place] [address] Care Team Providers Care Chief Commercial Officer Name Role Phone Physician, Pcp Unknown Primary Care Provider Katie vailable Reason for Visit * Reason Comments Follow-up DM Foot Care Encounter Details Date Type Department Care Team ([facility] st Contact Info) Description 01/23/2025 1:45 PM EDT Office Visit Orthopedic Surgery - [place] [address] [phone] Fredy Marshall, DPM [address] [address] Tinea pedis of both feet (Primary Dx); Dermatophytosis of nail; Acquired hammer toe of right foot; Diabetic mononeuropathy simplex ([facility] V24, [facility] V28); Type II diabetes mellitus with peripheral circulatory disorder ([facility] V24, [facility] V28); Primary osteoarthritis of both feet; Hammer toe of left foot Social History Tobacco Use Types Packs/Day Years Used Date Smoking Tobacco: Never Smokeless Tobacco: Never Alcohol Use Standard Drinks/Week Comments No 0 (1 standard drink = 0.6 oz pur e alcohol) Comments Unknown Sex and Gender Information Value Date Recorded Sex Assigned at Not on file Legal Sex Female 1:18 AM EST Gender Identity Not on file Sexual Orientation Not on file documented as of this encounter Ordered Prescriptions Prescription Sig Dispense Quantity Refills Last Filled Start Date End Date miconazole (Lotrimin AF) 2 % powder Apply topically 2 (two) times a day for 28 days. 70 g 3 01/23/2025 documented in this encounter Progress Notes * Fredy Marshall, DPM - 01/23/2025 1:45 PM EDT S: Patient presents stating that pans out both feet have been chronic she has been using supportive shoe gear still gets occasional achiness is using anti- inflammatory medications Voltaren gel previously prescribed also to her skin occasionally gets itchy and irritated she states that she may need some refills of topical antifungal medications notes her pain discomfort is an achy 2-3 out of 10 on a visual analog scale with itchiness of both feet patient is getting worsening irritation between her toes she states that she is getting some softness in that area and the skin has become more damp Last PCP visit 01/10/2025 sharan skinner MD ROS: GENERAL: Pt denies nausea, fever, vomiting, chills, or shortness of breath. Pt in NAD. CARDIOLOGY: pt denies chest pain, palpitations LUNGS: pt denies shortness of breath MUSCULOSKELETAL: See HPI, otherwise no joint pain or swelling, back pain, or muscle pain. SKIN: see HPI, otherwise no lesions, rash or itching NEURO: No persistent headache, weakness or numbness The remainder of the review of systems is noncontributory PAST MEDICAL HISTORY: There is no problem list on file for this patient. SOCIAL HISTORY: Social History Tobacco Use Smoking status: Never Smokeless tobacco: Never Substance Use Topics Alcohol use: No History Last Reviewed by Rivas Garsia on 09/01/2022 at 1:17 PM Sections Reviewed Tobacco ACTIVE MEDICATIONS: Current Outpatient Medications Medication Sig Dispense Refill Diclofenac Sodium 1 % Gel Apply 4 g topically 2 times daily. 100 g 2 pregabalin (LYRICA) 100 MG capsule TAKE 1 CAPSULE BY MOUTH THREE TIMES DAILY spironolactone (ALDACTONE) 25 MG tablet See Instructions, TAKE 1 TABLET BY MOUTH DAILY, # 90 tablet, Refills 0, Maintenance, 02/17/23 20:07:00 EDT, Instructions Replace Required Details, Route to Pharmacy Electronically, [id number], 150, cm, 02/17/23 10:41:00 EDT, Height, 8... clotrimazole (LOTRIMIN) 1 % cream Apply to skin daily for 6 weeks 30 g 3 chlorhexidine (HIBICLENS) 4 % external liquid Clean feet twice a day 120 mL 2 ciclopirox (PENLAC) 8 % solution Apply daily to nails clean medication residue off of nail plate every 3 days with rubbing alcohol 6.6 mL 3 Trulicity 1.5 MG/0.5ML Solution Pen-injector ADMINISTER 1.5 MG UNDER THE SKIN EVERY WEEK Insulin Detemir (Levemir FlexTouch) 100 UNIT/ML Solution Pen-injector INJECT 15 UNITS UNDER THE SKIN DAILY AT BEDTIME B-D ULTRAFINE III SHORT PEN 31G X 8 MM Misc USE WITH LEVEMIR AND TRULICITY DIRECTED NIFEdipine (ADALAT CC) 60 MG 24 hr tablet Take 60 mg by mouth daily. Cholecalciferol (Vitamin D) 50 MCG (2000 UT) Tab Take by mouth. Blood Glucose Monitoring Suppl Kit by Does not apply route. Diclofenac Sodium 1 % Gel Apply 4 g topically 2 times daily. 100 g 2 METFORMIN HCL OR Take by mouth. aspirin 81 MG tablet Take 81 mg by mouth daily. Atorvastatin Calcium (LIPITOR OR) Take by mouth. METOPROLOL SUCCINATE OR Take by mouth. No current facility-administered medications for this visit. ALLERGIES: Lisinopril and Sulfa drugs PHYSICAL EXAM: Height 4' 11 (1.499 m), weight 188 lb (85.3 kg). Estimated body mass index is 37.97 kg/m?? as calculated from the following: Height as of this encounter: 4' 11 (1.499 m). Weight as of this encounter: 188 lb (85.3 kg). PODIATRIC EXAMINATION: GENERAL: Patient appears well nourished, with NAD. VASCULAR: Dorsalis pedis pulses are 1 out of 4 left 0-4 right and Posterior tibial pulses are 1/4 bilaterally. Capillary filling time within normal limits the digits. No pallor on elevation or rubor on dependency. Absent hair growth. Positive varicosities +3 pitting edema bilaterally. Denies rest pain or claudication pain. NEUROLOGICAL: Sharp/dull sensation intact, protective sensation intact 10/10 with 5.07 semmes karina bilaterally, vibratory sensation with tuning fork intact to the tibial tuberosity. ORTHOPEDIC: Good muscle strength 4/5 of all flexors and extensors. Dorsi flexion of ankle ,10 degrees, plantar flexion WNL. No muscle atrophy. Diffuse pain on range of motion midtarsal joint forefoot and subtalar joint without significant crepitation DERMATOLOGICAL:. - Hair growth decreased or absent - nail changes thickening - pigmentary changes discoloration with hyperpigmented bilaterally - skin texture thin shiny Scaling both feet Hyperkeratotic tissue in the inner aspect of both hallux is in subfirst metatarsal bilaterally improved BIOMECHANICS: STJ ROM severe hindfoot arthritis rigid with crepitation range of motion, MTJ ROM severe arthritis rigid X ptosis noted with limited range of motion, 1st MPJ ROM wnl. IMAGING full read within epic consistent with severe pes planus foot type with severe hindfoot and midfoot arthritis bilaterally IMPRESSION: 1. Tinea pedis of both feet 2. Dermatophytosis of nail 3. Acquired hammer toe of right foot 4. Diabetic mononeuropathy simplex (CMS/HCC) 5. Type II diabetes mellitus with peripheral circulatory disorder (CMS/HCC) 6. Primary osteoarthritis of both feet 7. Hammer toe of left foot PLAN: Discussed with patient diabetic neuropathy swelling of feet and arthritis of the feet Continue with compression stockings bilaterally recommend referral to vascular surgery patient declined at this time Continue with diabetic shoes to be worn at all times Miconazole powder prescribed to be used interdigitally Chronic osteoarthritis discussed and reviewed Patient previously fitted for AFO braces to use braces bilaterally would recommend utilizes him Discussed and recommend steroid injections patient states like to hold off on steroid shots at thistime she is afraid of needles but states she is willing to try the Voltaren gel topically discussedalternative treatment options including surgical invention which I do not recommend at this time due to the lengthy prolonged recovery associated with it Continue with Voltaren gel Patient can follow-up in 3-6 months Fredy Marshall DPM documented in this encounter Plan of Treatment Upcoming Encounters Date Type Department Care Team (Late st Contact Info) Description 04/26/2025 1:30 PM EDT Office Visit Orthopedic Surgery - [address] [phone] Fredy Marshall, DPFelix [address] [facility] [address] [place] [address] documented as of this encounter Visit Diagnoses Diagnosis Tinea pedis of both feet- Primary Dermatophytosis of nail Acquired hammer toe of right foot Diabetic mononeuropathy simplex ([facility] V24, [facility] V28) Type II or unspecified type diabetes mellitus with neurological manifestations, not stated as uncontrolled Type II diabetes mellitus with peripheral circulatory disorder ([facility] V24, [facility] V28) Type II or unspecified type diabetes mellitus with peripheral circulatory disorders, not stated as uncontrolled Primary osteoarthritis of both feet Hammer toe of left foot documented in this encounter Care Teams Chief Commercial Officer Relationship Specialty Start Date End Date Physician, Pcp Unknown PCP - General 10/10/24 documented as of this encounter
--- OUTSIDE RECORDS SUMMARY | 2025-01-26 13:32 | XMS_ITS | Data Portability ---
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 Role Phone STEPHANIE GAMBLE Primary Care Provider Unavailable Referring Provider [phone] Assessment Encounter Date Assessment Date Assessment LastModified by Organization Details LastModified Time 07/24/2016 07/24/2016 status post left shoulder arthroscopy, subacromial decompression, rotator cuff repair [email or web address] Not available 07/24/2016 08:49:48 08/21/2016 08/21/2016 status post left shoulder arthroscopy, subacromial decompression, and rotator cuff repair Not available 08/21/2016 09:11:50 10/02/2016 10/02/2016 status post left shoulder arthroscopy, subacromial decompression, rotator cuff repair Not available 10/02/2016 13:09:47 11/13/2016 11/13/2016 status post left shoulder arthroscopy, subacromial decompression, rotator cuff repair Not available 11/13/2016 13:01:03 Plan of Treatment Reminders Order Date Submit Date Provider Last Modified By Organization Details Last Modified Time Details Appointments None record ed. Lab None record ed. Referral None record ed. Procedures None record ed. Surgeries None record ed. Imaging None record ed. Medication Orders None record ed. Patient TargetsNo targets recorded. Patient Instructions Encounter Date Encounter Id Patient Instructions Last Modified By Organization Details Last Modified Time 07/24/2016 [id number] reviewed exam findings. I reviewed the arthroscopic images with her and provided her a copy of the pictures. Given the small nature of the tear as well as her history of diabetes I would initiate early physical therapy to avoid stiffness. I gave her a referral for this today. I would limit her to passive range of motion only with 90? ? ? of forward flexion 60? ? ? of abduction and 30? ? ? of external rotation.nothing further. No active motion. No strengthening. Continue with the sling for sleep and during the day. Follow-up with me in 4 weeks for reevaluation at which point we will work out of the sling and advance her therapy program.The patient is comfortable with this plan and all of their questions were answered at today's visit. ajay Not available 07/24/2016 08:50:25 08/21/2016 [id number] we again reviewe d exam findings and discussed management moving forward. Unfortunately she has been noncompliant in terms of using the sling. Again we had a discussion of following postoperative protocol and restrictions at this point. having said this she has made some good progress in terms of range of motion. She was given a renewal for outpatient physical therapy to advance it to active assistive range of motion and active range of motion as tolerable. No strength work, heavy lifting, or aggressive overhead activities. She will follow-up in the office in 6 weeks for reevaluation and to make sure she is making appropriate progress. We will likely begin some gentle strengthening exercises at that appointment. The patient is comfortable with this plan and all of their questions were answered at today's visit. jack Not available 08/21/2016 09:13:37 10/02/2016 [id number] rotator cuff injury: care instructions DAHIANA Not available 10/04/2016 15:35:18 reviewed exam findings and discussed management moving forward. She continues to make good progress with pain and range of motion. At this point we will initiate a gentle rotator cuff strengthening program. She was given a renewal for outpatient physical therapy to start the strengthening and continue with the range of motion and stretching exercises. Continue the occasional ice and Tylenol for any lingering discomfort. Again reviewed restrictions which include no aggressive overhead lifting or aggressive overhead activities. She'll follow-up in the office in 6 weeks for reevaluation to make sure she continues to make appropriate progress. The patient is comfortable with this plan and all of their questions were answered at today's visit. jack Not available 10/02/2016 13:10:41 11/13/2016 [id number] rotator cuff injury: care instructions DAHIANA Not available 11/15/2016 18:36:54 we reviewed eexa am findings and discussed management moving forward. She's made excellent progress. Range of motion is strength look good. Functionally she is doing quite well. At this point she will continue the home exercise program. She can slowly resume her normal activities as she feels comfortable. Certainly if her symptoms are changing or worsening a significant way of being happy to see her back in the office for a follow-up visit. She will follow-up as needed now. The patient is comfortable with the plan and all questions been answered at today's visit. Not available 11/13/2016 13:01:55 Reason for Referral None Reported. Results Created Date Observation Date Name Description Value Unit Range Abnormal Flag Note LastModifiedBy Organization Detail LastModifiedTime 07/18/20 16 07/18/2016 gluco cami rstic k, blood bedside glucose 102 mg/dL 70-110 [facility] [address] Melissa López, [place] [address] phone [phone] , [facility] Swathi Osman MD. Not Available [address], [address], 07/18/2016 11:56:36 07/18/20 16 07/18/2016 gluco cami rstic k, blood bedside glucose 153 mg/dL 70-110 [facility] [address] krysta Vizcarra shaniqueZoeyjovani gerrijovani, [place] [address] phone [phone] , [facility] Swathi Osman MD. Not Available [address], [address], 07/18/2016 16:45:07 Result Notes None recorded. Problems Name Problem SNOMED Code Status Onset Date Resolution Date Notes Provider Name and Address Organization Details Recorded Time Shoulder joint pain 207168967 Active Rafi Lord MD [address] [place] [address], [phone], [facility] 6 10:40:44 Neck pain 57500477 Active Rafi Lord MD [address] [place] [address], [phone], [facility] 6 10:40:44 Full thickness rotator cuff tear 391657001 Active Rafi Lord MD [address] [place] [address], [phone], [facility] 6 10:42:11 Carpal tunnel syndrome 63781850 Active Rafi Lord MD [address] [place] [address], [phone], [facility] 6 10:40:44 Inflammation of rotator cuff tendon 266419807 Active Rafi Lord MD [address] [place] [address], [phone], [facility] 6 10:40:44 Problem Notes None recorded. Procedures Surgical History Date Name Laterality Status Provider Name and Address Organization Details Recorded Time 6 Shoulder Subacromial - LEFT - CS Injection completed Rafi Lord MD [address] [place] [address], [phone], [facility] 02/26/2016 13:48:34 6 Shoulder Subacromial - LEFT - CS Injection completed Rick Keita [address] [place] [address], [phone], [facility] 01/01/2016 12:33:06 5 Carpal Tunnel LEFT CS Injection completed Alysia Beard [address] [place] [address], [address], [facility] 09/26/2015 11:18:05 5 Carpal Tunnel RIGHT CS Injection completed Matthew Jackson MD [address] [place] [address], [phone], [facility] 09/19/2015 11:24:33 1 Heart Surgery completed Denise Walker [facility] 01/02/2015 10:13:45 Imaging Results None recorded. Procedure Notes None recorded. Medical Equipment None Reported. Allergies Allergen ID Allergen Name Allergen Category Reaction Reaction Severity Criticality Documentation Date Start Date Code Code System Note Provider Name and Address Organization Details Recorded Time 84034 Substance with sulfonami de structure and antibacte rial mechanism of action (substanc e) medicatio n Not available Not available Not available 01/02/2015 [id number] REILLY Denise espinoza [facility] 5 10:09:43 Medications Name Sig Start Date Stop Date Status Note LastModified by Organization Details LastModified Time Depo-Medrol 40 mg/mL suspension for injection 2015 active Not Available Not Available Not Avai lable diphenhydramin e 25 mg capsule TAKE ONE CAPSULE BY MOUTH 3 TIMES A DAY active Not Available Not Available No t Available methylpredniso lone 4 mg tablets in a dose pack TAKE DIRECTED active Not Available Not Available No t Available oxycodone 5 mg tablet TK 1 T PO Q 4 TO 6 H PRN P active Not Available Not Available No t Available aspirin active Not Available Not Avail able Not Available Lipitor active Not Available Not Avail able Not Available Proventil HFA active Not Available Not Available Not Available metformin active Not Available Not Melva ilable Not Available gabapentin active Not Available Not Av ailable Not Available metoprolol tartrate (bulk) active Not Available Not Available Not Available Levemir U-100 Insulin active Not Available Not Available Not Available Januvia active Not Available Not Avail able Not Available Vitals Date Recorded Body height Body weight Body mass index (BMI) Provider Name and Address Organization Details Last Updated DateTime 07/24/2016 149.86 cm 83407.29 g 40 kg/m2 Johanne Yaz [facility] 07/24/2016 08:25:09 Date Recorded Pain severity - 0-10 verbal numeric rating [Score] - Reported Provider Name and Address Organization Details Last Updated DateTime 07/24/2016 3 Not Available [facility] 8 05:51:08 Date Recorded Body height Body weight Body mass index (BMI) Provider Name and Address Organization Details Last Updated DateTime 08/21/2016 149.86 cm 55980.29 g 40 kg/m2 Colleen Barbosa [facility] 08/21/2016 08:59:34 Date Recorded Pain severity - 0-10 verbal numeric rating [Score] - Reported Provider Name and Address Organization Details Last Updated DateTime 08/21/2016 5 Not Available [facility] 8 05:51:13 Date Recorded Body height Body weight Body mass index (BMI) Provider Name and Address Organization Details Last Updated DateTime 10/02/2016 149.86 cm 86179.29 g 40 kg/m2 Johanne Mukherjee [place] [facility] 10/02/2016 13:00:48 Date Recorded Pain severity - 0-10 verbal numeric rating [Score] - Reported Provider Name and Address Organization Details Last Updated DateTime 10/02/2016 3 Not Available [facility] 8 05:51:22 Social History None recorded. Functional Status None recorded. Mental Status None recorded. Family History Relationship Description Onset Age of this Age Resolved Age Notes LastModified by Organization Details LastModified Time Mother Diabetes mellitus [email or web address] Not available 2015 10:41:11 Medical History Condition Response Hereditary Defects N Coronary Artery Disease N Gout N Tremors/Seizures/Dizziness/Epilepsy N Excessive Thirst/Fatigue N Lung Disease N Blood Clots N Fever, Chills, Headaches N Pacemaker N Heart Disease/Problems Y Breathing Problems Y Heart Attack ([place]) Y Sexually Transmitted Diseases N Bleeding Disorder/Tendencies or Anemia N Stomach Ulcers N Diabetes Y Skin Problems/Rash/Boils N Depression/Psychiatric Problems Y Arthritis Y Tuberculosis N Cancer N Stroke N Eye Problems Y Leg or Foot Ulcers N HIV/AIDS N Chest Pain/Heart Attack/Arrhythmia Y Urinary Pain/Frequency/Retention N Stomach Problems/Reflux/GERD N Hepatitis N Rheumatoid Arthritis N Hypertension/High Blood Pressure N Osteoporosis N Kidney Disease N Gynecological HistoryNo gynecological history recorded. Obstetrics History GPAL:G 0 P 0 0 0 0 Past Encounters Encounter ID Performer Location Encounter Start Date Encounter Closed Date Diagnosis/Indication Diagnosis SNOMED-CT Code Diagnosis ICD10 Code Diagnosis Note [id number] Rachell Bryson [facility] [address] [address] 01/02/2015 09:36:03 01/02/2015 11:56:00 Shoulder joint pain 474182626 Neck pain 45703457 [id number] Rachell Bryson [facility] [address] [address] 04/05/2015 09:27:48 04/05/2015 10:07:53 Full thickness rotator cuff tear 319288917 [id number] Rachell Bryson [facility] [address] [address] 06/12/2015 08:09:20 06/12/2015 09:21:37 Full thickness rotator cuff tear 408678328 [id number] Rachell Bryson [facility] [place] ot a [address] [address] 07/10/2015 10:36:50 07/10/2015 11:20:53 Full thickness rotator cuff tear 902000209 [id number] Rick Keita [facility]. [facility] [address] [address] 08/21/2015 14:49:20 08/21/2015 16:03:40 Full thickness rotator cuff tear 730435899 M75.121 [id number] Kimber Stern OFF[facility]. [facility] [address] [address] 08/29/2015 10:33:51 08/29/2015 11:15:10 Carpal tunnel syndrome 94518956 G56.01 G56.02 [id number] Kimber Stern [facility] [address] [address] 09/19/2015 10:55:18 09/19/2015 11:33:07 Carpal tunnel syndrome 73537244 G56.01 G56.02 [id number] Kimber Stern [facility] [address] [address] 09/26/2015 10:59:02 09/26/2015 11:27:12 Carpal tunnel syndrome 67304283 G56.02 G56.01 [id number] Rafi Lord MD [facility]ICE[facility]. [facility] ot [facility] Service [facility] [address] [address] 10/02/2015 11:02:58 10/02/2015 11:30:21 Shoulder joint pain 167060984 M25.519 Full thick ness rotator cuff tear 441660964 M75.121 [id number] Rick Keita OFFICE[facility]N. [facility] Service [address] [address] 01/01/2016 10:58:55 01/01/2016 12:11:51 Full thickness rotator cuff tear 890923746 M75.121 Inflammati on of rotator cuff tendon 738177497 M65.819 [id number] Rick Keita OFFICE[facility]N. [facility] ot [facility] Service [address] [address] 01/29/2016 10:42:18 01/29/2016 11:19:36 Inflammation of rotator cuff tendon 122055034 M65.819 [id number] Rafi Lord MD [facility]ICE[facility]N. [facility] ot a [address] [address] 02/26/2016 13:19:39 02/26/2016 13:52:54 Full thickness rotator cuff tear 726841052 M75.122 [id number] Rafi Lord [facility] [address] [address] 04/15/2016 09:48:13 04/15/2016 10:37:29 Full thickness rotator cuff tear 616771603 M75.122 [id number] [place] [address] 05/27/2016 12:14:14 05/27/2016 12:14:29 [id number] Rafi Lord MD OFFICE-N. [facility] ot a [address] [address] 07/24/2016 08:10:53 07/24/2016 09:46:58 Full thickness rotator cuff tear 870120525 M75.122 [id number] Soni [facility] [place] [address] 07/24/2016 13:05:09 07/24/2016 13:05:47 [id number] Rick Keita OFF[facility]. [facility] Service [address] [address] 08/21/2016 08:55:23 08/21/2016 10:25:25 Full thickness rotator cuff tear 343600257 M75.122 [id number] Rick Keita OFF[facility]. [place] ot [facility] [address] [address] 10/02/2016 12:51:16 10/02/2016 14:24:39 Full thickness rotator cuff tear 198003533 M75.121 [id number] Rick Keita [facility]. [place] [address] [address] 11/13/2016 12:45:02 11/13/2016 13:38:47 Full thickness rotator cuff tear 767470383 M75.121 Health Concerns Section Related Observation LastModified by Organization Detai ls LastModified Time None Recorded Concern Status LastModified by Organization Details LastModified Time None Recorded Advance Directives Directive None Recorded Payers Encounter Date Sequence Insurance Name Policy Number Policy Arango Covered Member ID Arango Member ID Guarantor Name 07/18/2016 1 [place] [facility] [id number] [facility] 07/24/2016 1 [place] [facility] [id number] [facility] 08/21/2016 1 [place] [facility] [id number] [facility] 10/02/2016 1 [place] [facility] [id number] [facility] 11/13/2016 1 [place] [facility] [id number] [facility] Notes Date Note Type Note Provider Name and Address Organization Details Recorded Time 07/24/2016 text/html Rossy is here today for her first postoperative visit. She 6 days out from rotator cuff repair on the left side. Overall doing well. Pain is well-controlled.she continues to wear her sling. Rafi Lord MD [address] [place], [address], [facility] 07/24/2016 08:50:49 08/21/2016 text/html Rossy returns for follow-up of her left shoulder. She is now 5 weeks out from a rotator cuff repair on the left side. She has been noncompliant in terms of using the UltraSling. She had stopped using it a week after the operation. She's been in outpatient physical therapy working on passive range of motion. She has little to no pain in the shoulder today. She feels like she is making good progress with the range of motion. Overall happy with the progress thus far. Rick Keita [address] [place], [address], [facility] 08/21/2016 09:13:47 10/02/2016 text/html Rossy returns for a follow-up of her left shoulder. She is now 11 weeks out from rotator cuff repair on the left side. Little to no discomfort at this point. She continues working on passive range of motion and active range of motion at physical therapy. Overall she feels like she is making good progress. No strength work yet. Rick Keita [address] [place], [address], [facility] 10/02/2016 13:11:05 11/13/2016 text/html Leland return s for a follow-up of her left shoulder. She is 17 weeks out from a rotator cuff repair in the left side. She reports no pain at all. She is completed physical therapy and doing a home exercise program. Functionally doing very well. She is very happy with her results. Rick Keita [address] [place], [address], [facility] 11/13/2016 13:02:03 OBGyn Episode No OBEpisode recorded.
--- OUTSIDE RECORDS SUMMARY | 2025-01-26 13:32 | XMS_ITS | Data Portability ---
Author Organization [place] - [facility], Allergy Address [address] [address] Care Team Providers Care Food Concession Manager Name Role Phone CLEMENTE LINDQUIST Primary Care Provider [phone] Assessment No assessment recorded. Plan of Treatment Reminders Order Date Submit Date Provider Last Modified By Organization Details Last Modified Time Details Appointments None record ed. Lab None record ed. Referral None record ed. Procedures None record ed. Surgeries None record ed. Imaging None record ed. Medication Orders None record ed. Patient TargetsNo targets recorded. Patient InstructionsNo instructions recorded. Reason for Referral None Reported. Results Created Date Observation Date Name Description Value Unit Range Abnormal Flag Note LastModifiedBy Organization Detail LastModifiedTime 06/09/20 24 11/24/2023 imagi ng/di agnos tic resul t No observ ation record ed. [email or web address] Not Available 12:32:55 06/09/20 24 03/08/2024 imagi ng/di agnos tic resul t No observ ation record ed. [email or web address] Not Available 12:33:01 06/09/20 24 06/01/2023 imagi ng/di agnos tic resul t No observ ation record ed. [email or web address] Not Available 12:33:04 06/09/20 24 06/01/2023 imagi ng/di agnos tic resul t No observ ation record ed. [email or web address] Not Available 12:33:05 06/09/20 24 06/02/2022 imagi ng/di agnos tic resul t No observ ation record ed. [email or web address] Not Available 12:33:08 06/09/20 24 06/02/2022 imagi ng/di agnos tic resul t No observ ation record ed. [email or web address] Not Available 12:33:10 06/09/20 24 11/24/2023 audio gram No observ ation record ed. [email or web address] Not Available 12:33:21 06/09/20 24 06/01/2023 audio gram No observ ation record ed. [email or web address] Not Available 12:33:27 06/09/20 24 06/02/2022 audio gram No observ ation record ed. [email or web address] Not Available 12:33:34 06/27/20 audio gram No observ ation record ed. [email or web address] Not Available 2023 15:26:06 Result Notes None recorded. Problems Name Problem SNOMED Code Status Onset Date Resolution Date Notes Provider Name and Address Organization Details Recorded Time Mixed conductiv e and sensorine ural hearing loss of left ear 17998261422 107 Active 2022 Mixed conductiv e and sensorine ural hearing loss, unilatera l, left ear with restricte d hearing on the contralat eral side; Note: Date Diagnosed : 06/01/2023 10:57 AM (H90.A32) Mixed conductiv e and sensorine ural hearing loss, unilatera l, left ear with restricte d hearing on the contralat eral side; Note: Date Diagnosed : 06/02/2022 2:50 PM (H90.A32) ; Start Date : 2 Not Available [facility] 4 02:42:18 Sensorine ural hearing loss of bilateral ears 356156134 Active 2021 Sensorine ural hearing loss, bilateral ; Note: Date Diagnosed : 06/02/2022 2:36 PM (H90.3) Not Available [facility] 4 02:42:22 Sensorine ural hearing loss in right ear 28610067044 100 Active 2022 Sensorine ural hearing loss, unilatera l, right ear, with restricte d hearing on the contralat eral side; Note: Date Diagnosed : 06/01/2023 10:57 AM (H90.A21) Not Available [facility] 4 02:42:22 Tympanosc lerosis 59938705 Active 2023 YAMILE RIVERA MD 100 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,[place] [address], [place], [address] , [facility] - [facility] 4 11:19:44 Problem Notes None recorded. Procedures Surgical History Date Name Laterality Status Provider Name and Address Organization Details Recorded Time 06/27/20 24 Comp Audio with Tymps (38817 & 73618) completed EDMUNDO ARRIETA [facility],[address], [place], [address], [place] - [facility] 06/27/2024 11:19:36 03/08/20 24 Air only Audio (23607) completed KOFI GIPSON, AUD [address] [facility],[address], [place], [address], [place] - [facility] 03/08/2024 12:02:42 03/08/20 24 SRT & Speech Recognition (30629) completed KOFI GIPSON, AUD [address] [facility],[address], [place], [address], [place] - [facility] 03/08/2024 12:02:49 01/22/20 24 stapes operation completed Dona Morgan [place] - [facility] 03/08/2024 11:34:55 Imaging Results Imaging Date Name Status LastModified by Organiz ation Details LastModified Time 11/24/2023 imaging/diagno stic result completed Information not available 06/09/2024 12:32:55 03/08/2024 imaging/diagno stic result completed Information not available 06/09/2024 12:33:01 06/01/2023 imaging/diagno stic result completed Information not available 06/09/2024 12:33:04 06/01/2023 imaging/diagno stic result completed Information not available 06/09/2024 12:33:05 06/02/2022 imaging/diagno stic result completed Information not available 06/09/2024 12:33:08 06/02/2022 imaging/diagno stic result completed Information not available 06/09/2024 12:33:10 11/24/2023 audiogram completed Information not available 06/09/2024 12:33:21 06/01/2023 audiogram completed Information not available 06/09/2024 12:33:27 06/02/2022 audiogram completed Information not available 06/09/2024 12:33:34 06/27/2024 audiogram completed [email or web address] Information no t available 06/27/2024 15:26:06 Procedure Notes None recorded. Medical Equipment None Reported. Allergies Allergen ID Allergen Name Allergen Category Reaction Reaction Severity Criticality Documentation Date Start Date Code Code System Note Provider Name and Address Organization Details Recorded Time 796155 lisinopri l medicatio n Not available Not available Not available 03/08/2024 38207 RxNorm Dona espinoza [place] - [facility] 4 11:58:56 57469 Substance with sulfonami de structure and antibacte rial mechanism of action (substanc e) medicatio n other Not available Not available 03/01/2024 85967 8003 SNOMED React ion: Unkno wn; Not Available [facility] 4 01:04:14 Medications Name Sig Start Date Stop Date Status Note LastModified by Organization Details LastModified Time atorvasta tin 40 mg tablet TAKE 1 TABLET BY MOUTH DAILY active Not Available Not Available No t Available carvedilo l 6.25 mg tablet active Not Available Not Available Not Available naproxen 375 mg tablet TAKE 1 TABLET BY MOUTH TWICE DAILY NEEDED FOR ARTHRITI S DUC TABLETA DOS VECES AL KOLBY CUANDO LO NECESITE PARA EL DOLOR. CON EL ESTOMAGO LLENO 06/27 completed Not Available Not Available Not Available metoprolo l succinate ER 100 mg tablet,ex tended release 24 hr 06/27 completed Medicati on ID: [id number] B rand Name: metoprol ol succinat e Send Method: E-Prescr ibed Sub s Allowed: subs OK Speci al Instruct ion: TAKE 1 TABLET BY MOUTH DAILY Me dication GenericN radha: metoprol ol succinat e Not Available Not Available Not Available metformin 850 mg tablet 06/27 completed Medicati on ID: [id number] B rand Name: metformi n Send Method: E-Prescr ibed Sub s Allowed: subs OK Speci al Instruct ion: TAKE 1 TABLET BY MOUTH THREE TIMES DAILY Me dication GenericN radha: metformi n Not Available Not Available Not Available spironola ctone 25 mg tablet active Not Available Not Available No t Available ketorolac 0.5 % eye drops 06/27 completed Medicati on ID: [id number] B rand Name: ketorola c Send Method: E-Prescr ibed Sub s Allowed: subs OK Medic ationGen ericName : ketorola c Not Available Not Available Not Available ciclopiro x 8 % topical solution 06/01 completed Medicati on ID: [id number] B rand Name: ciclopir ox Send Method: E-Prescr ibed Sub s Allowed: subs OK Speci al Instruct ion: APPLY DAILY TO NAILS CLEAN MEDICATI ON RESIDUE OFF OF NAIL PLATE EVERY 3 DAYS WITH RUBBING ALCOHOL Medicati onGeneri cName: ciclopir ox Not Available Not Available Not Available ofloxacin 0.3 % ear drops INSTILL 4 DROPS TO AFFECTED EAR TWICE DAILY FOR 14 DAYS 03/08 completed Not Available Not Available Not Available nifedipin e ER 60 mg tablet,ex tended release 24 hr 06/27 completed Medicati on ID: [id number] B rand Name: nifedipi ne Send Method: E-Prescr ibed Sub s Allowed: subs OK Speci al Instruct ion: TAKE 1 TABLET BY MOUTH DAILY Me dication GenericN radha: nifedipi ne Not Available Not Available Not Available dorzolami de 22.3 mg-timolo l 6.8 mg/mL eye drops 06/01 completed Medicati on ID: [id number] B rand Name: dorzolam franny-sandrita lol Send Method: E-Prescr ibed Sub s Allowed: subs OK Speci al Instruct ion: INSTILL 1 DROP IN BOTH EYES TWICE DAILY Me dication GenericN radha: dorzolam franny-sandrita lol Not Available Not Available Not Available furosemid e 20 mg tablet TAKE 1 TABLET BY MOUTH DAILY DUC TABLETA EN LA MANANAS SOLO CUANDO TENGA HINCHAZO N EN LABEL SUCH PIERNAS active Not Available Not Available No t Available ketoconaz ole 2 % topical cream 06/01 completed Medicati on ID: [id number] B rand Name: ketocona zole Sen d Method: E-Prescr ibed Sub s Allowed: subs OK Speci al Instruct ion: APPLY TOPICALL Y TO THE AFFECTED AREA TWICE DAILY Me dication GenericN radha: ketocona zole Not Available Not Available Not Available metformin ER 500 mg tablet,ex tended release 24 hr TAKE 2 TABLETS BY MOUTH TWICE DAILY active Not Available Not Available No t Available clotrimaz ole 1 % topical cream 06/01 completed Medicati on ID: [id number] B rand Name: clotrima drake Sen d Method: E-Prescr ibed Sub s Allowed: subs OK Speci al Instruct ion: APPLY TOPICALL Y TO THE AFFECTED AREA DAILY FOR 6 WEEKS Me dication GenericN radha: clotrima zole Not Available Not Available Not Available Adult Low Dose Aspirin 81 mg tablet,de layed release Take 1 tablet every day by oral route. active Not Available Not Available No t Available pregabali n 100 mg capsule TAKE 1 CAPSULE BY MOUTH THREE TIMES DAILY 06/27 completed Not Available Not Available Not Available Levemir FlexPen 100 unit/mL (3 mL) solution subcutane ous insulin pen INJECT 15 UNITS UNDER THE SKIN AT BEDTIME active Not Available Not Available No t Available BD Ultra-Fin e Short Pen Needle 31 gauge x 5/16 06/01 completed Medicati on ID: [id number] B rand Name: BD Ultra-Fi ne Short Pen Needle S end Method: E-Prescr ibed Sub s Allowed: subs OK Speci al Instruct ion: USE WITH LEVEMIR AND TRULICIT Y DIRECTED Medicat ionGener icName: BD Ultra-Fi ne Short Pen Needle Not Available Not Available Not Available diclofena c 1 % topical gel APPLY 4 GRAMS TOPICALL Y TO THE AFFECTED AREA TWICE DAILY 03/08 completed Not Available Not Available Not Available metformin ER 1,000 mg 24 hr tablet,ex tended release (gastric reten.) TAKE 1 TABLET BY MOUTH TWICE DAILY DUC TABLETA DOS VECES AL KOLBY 03/08 completed Not Available Not Available Not Available cholecalc iferol (vitamin D3) 50 mcg (2,000 unit) capsule active Medicati on ID: [id number] B rand Name: cholecal ciferol (vitamin D3) Send Method: E-Prescr ibed Sub s Allowed: subs OK Speci al Instruct ion: TAKE 1 CAPSULE BY MOUTH DAILY WITH FOOD Med icationG enericNa me: cholecal ciferol (vitamin D3) Not Available Not Available Not Available Antisepti c Skin Cleanser (chlorhex idine) 4 % liquid 06/01 completed Medicati on ID: [id number] B rand Name: Antisept ic Skin Clnsr(ch lorhe) S end Method: E-Prescr ibed Sub s Allowed: subs OK Speci al Instruct ion: CLEAN FEET TWICE DAILY Me dication GenericN radha: Antisept ic Skin Clnsr(ch lorhe) Not Available Not Available Not Available Trulicity 1.5 mg/0.5 mL subcutane ous pen injector ADMINIST ER 1.5 MG UNDER THE SKIN EVERY WEEK active Not Available Not Available No t Available Vitals Date Recorded Body height Body mass index (BMI) Body weight Provider Name and Address Organization Details Last Updated DateTime 03/08/2024 149.86 cm 36.4 kg/m2 11036.63 g Dona Morgan [place] - [facility] 03/08/2024 11:35:38 Social History None recorded. Functional Status None recorded. Mental Status None recorded. Family History Nothing Reported. Medical History Condition Response Diabetes Y Arthritis Y Sleep Disorder Y High Cholesterol Y Heart Attack ([place]) Y Hypertension Y Asthma Y Glaucoma Y Gynecological HistoryNo gynecological history recorded. Obstetrics History GPAL:G 0 P 0 0 0 0 Past Encounters Encounter ID Performer Location Encounter Start Date Encounter Closed Date Diagnosis/Indication Diagnosis SNOMED-CT Code Diagnosis ICD10 Code Diagnosis Note [id number] YAMILE RIVERA MD [facility] [address] [address] 03/08/2024 11:22:32 03/08/2024 12:33:58 Tympanosclerosis 18248099 H74.02 Left ear has healed well following laser stapedotom y with vein graft. All water and activity precaution s are lifted. Audiometri c testing today showed partial closure of the air-bone gap on the left. Sensorineu ral thresholds unchanged. This may continue to improve over time. Recommend follow-up audiogram in 3 months. Depending on the degree of residual hearing loss, we can discuss the pros and cons of proceeding with amplificat ion. Otoscleros is of ossicle of left ear [id number] 972759 H80.92 Sensorineu ral hearing loss in right ear 4615383570 9100 H90.A21 Mixed cond uctive and sensorineural hearing loss of left ear 2864070964 9107 H90.A32 [id number] EDMUNDO AVALOS [place] 100 [facility],[place] [address] [place] [address] 03/08/2024 12:01:55 03/14/2024 20:11:12 Mixed conductive and sensorineural hearing loss of left ear 6525299509 9107 H90.A32 Mild to profound [place]. [id number] YAMILE RIVERA MD [facility] 100 [place] [address] 06/27/2024 10:36:27 06/27/2024 11:55:55 Tympanosclerosis 21266277 H74.02 Left ear has healed well following laser stapedotom y with vein graft. The hearing has improved even more postoperat ively with minimal residual conductive component on top of her baseline sensorineu ral hearing loss. While this is improved, she still has enough residual hearing loss that amplificat ion is still recommende d. She has hearing aids dispensed at [facility] audiology, so I have given her a copy of her latest audiograms and medical clearance to return to her audiologis t to ensure that her hearing aids are adjusted to match her current level of hearing loss. She may follow-up as needed Otoscleros is of ossicle of left ear [id number] 607074 H80.92 Sensorineu ral hearing loss in right ear 2917617014 9100 H90.A21 Mixed cond uctive and sensorineural hearing loss of left ear 6752486808 9107 H90.A32 Audiologic al evaluation results:Ri ght ear:DNTLef t ear:{{Norm al sloping Mi ld* Modera te Moderat theodore-severe Severe Pr ofound Nor mal auditory thresholds }} to {{mild mod erate mode rately-sev ere severe profound* with}} {{sensorin eural hearing loss with condu ctive hearing loss with mixed hearing loss with*}} {{excellen t* good fa ir poor no t measurable }} word recognitio n.Tympanom etry:Right Ear:{{Type A Type As Type Ad Type C Type C, shallow & rounded Ty pe B Type B with large volume Cou ld not maintain a hermetic seal DNT#} }Left Ear:{{Type A* Type As Type Ad Type C Type C, shallow & rounded Ty pe B Type B with large volume Cou ld not maintain a hermetic seal}} [id number] AYE JESSJESSIKA, EDMUNDO [facility] [address] [place] [address] 06/27/2024 11:18:56 06/29/2024 11:32:08 Mixed conductive AND sensorineural hearing loss 95277557 H90.A32 Audiologic al evaluation results:Ri ght ear:DNTLef t ear:{{Norm al sloping Mi ld* Modera te Moderat theodore-severe Severe Pr ofound Nor mal auditory thresholds }} to {{mild mod erate mode rately-sev ere severe profound* with}} {{sensorin eural hearing loss with condu ctive hearing loss with mixed hearing loss with*}} {{excellen t* good fa ir poor no t measurable }} word recognitio n.Tympanom etry:Right Ear:{{Type A Type As Type Ad Type C Type C, shallow & rounded Ty pe B Type B with large volume Cou ld not maintain a hermetic seal DNT#} }Left Ear:{{Type A* Type As Type Ad Type C Type C, shallow & rounded Ty pe B Type B with large volume Cou ld not maintain a hermetic seal}} Health Concerns Section Related Observation LastModified by Organization Detai ls LastModified Time None Recorded Concern Status LastModified by Organization Details LastModified Time None Recorded Advance Directives Directive None Recorded Payers Encounter Date Sequence Insurance Name Policy Number Policy Arango Covered Member ID Arango Member ID Guarantor Name 03/08/2024 2 [place] [facility] [id number] [facility] 03/08/2024 1 MEDICARE B[place] [facility] [id number] [facility] 03/08/2024 2 [place] [facility] [id number] [facility] 03/08/2024 1 [place] [facility] [id number] [facility] 06/27/2024 2 [place] [facility] [id number] [facility] 06/27/2024 1 [place] [facility] [id number] [employer] [place] 06/27/2024 2 [place] [id number] [facility] 06/27/2024 1 [place] [facility] [place] [id number] [employer] [place] Notes Date Note Type Note Provider Name and Address Organization Details Recorded Time 03/08/2024 text/html Patient is now 6 weeks status post left laser stapedotomy with vein graft. She had diffuse thickening around the stapes footplate which may have been related to tympanosclerosis. 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 A Smart Piston stapes prosthesis was used to reconstruct the stapes. Patient thinks her hearing has improved a bit, but does not seem normal. YAMILE RIVERA MD [address] [place] [address], [address], [place] - [facility] 03/08/2024 12:23:45 06/27/2024 text/html Status post left laser stapedotomy with vein graft back in January 2024 patient had partial improvement in her hearing. She had diffuse thickening around the stapes footplate which may have been related to tympanosclerosis. 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 A Smart Piston stapes prosthesis was used to reconstruct the stapes. Patient had partial improvement in her hearing noted on her postoperative audiogram, she comes back today for 3-month follow-up to assess for further improvement. She reports hearing much better at [facility]. She comes in today accompanied by her daughter who is helping to translate [place] YAMILE RIVERA MD [address] [place] [address], [address], [place] - [facility] 06/27/2024 11:53:46 06/27/2024 text/html Feels she is hearing better EDMUNDO ARRIETA [address] [place] [address],[address], [address], [place] - [facility] 06/27/2024 11:20:21 OBGyn Episode No OBEpisode recorded.
== END 2025-01-26 11:28 | disposition home or self-care (01) ==
PROVIDERS: PCP Nurse Practitioner Family; Visit Provider Internal Medicine
DX: I25.10 Atherosclerotic heart disease of native coronary artery without angina pectoris (principal); Z95.1 Presence of aortocoronary bypass graft; E11.9 Type 2 diabetes mellitus without complications; I10 Essential (primary) hypertension; E78.5 Hyperlipidemia, unspecified
CPT/HCPCS: 99214; G2211

== ENCOUNTER → 2025-01-26 11:09 | Outpatient (BNVA) | payer MEDICARE, MEDICAID, SELFPAY | PROVIDERS: Visit Provider Internal Medicine | DX: I25.10 Atherosclerotic heart disease of native coronary artery without angina pectoris (principal); E11.9 Type 2 diabetes mellitus without complications; I10 Essential (primary) hypertension; E78.5 Hyperlipidemia, unspecified; Z95.1 Presence of aortocoronary bypass graft | CPT/HCPCS: 99212 ==

== ENCOUNTER 2025-10-16 15:30 | Outpatient (AMB) | payer MEDICARE, MEDICAID, SELFPAY ==
--- NOTE | 2025-10-16 15:33 | MHC.OFFVIS ---
Vital Signs 10/16/25 15:40 Height 4 ft 11 in Weight 165 lb 2.02 oz BMI 33.3 BP 130/82 Blood Pressure Location Lt brachial Position Sitting Pulse 70 Pulse Source Monitor Intake Visit Reasons: 6 mth fu- needed late appt- (HS) r/s 09-18-25 Intake Note: 6 mth f/up Housekeeping/Laundry Required: No Accompanied by: Self / Same As Patient Allergies sulfamethoxazole Allergy (Unknown, Verified 01/21/24 14:45) Rash Medication List - Last Reconciled 10/16/25 by ORLIN Mcclain aspirin (Adult Low Dose Aspirin) 81 mg PO DAILY atorvastatin 40 mg PO DAILY carvedilol 6.25 mg PO BID dulaglutide (Trulicity) 1.5 mg subcut QWEEK insulin detemir U-100 15 units (0.15 mL) subcut BEDTIME metformin 850 mg PO TID metformin 500 mg PO BID nitroglycerin 0.4 mg sublingual Q5M PRN pregabalin 100 mg PO TID spironolactone 25 mg PO DAILY HPI Comments Details: History of Present Illness The patient is a 70-year-old female presenting for a follow-up visit for coronary artery disease. She has a history of coronary artery bypass grafting with a LOPEZ to diagonal to LAD graft. Her last cardiac catheterization in 2015 revealed a patent LOPEZ with competitive flow from the LAD and a 70% stenosis in the proximal LAD. Her past medical history is significant for hypertension, hyperlipidemia, and diabetes. Her cardiac medications include aspirin, atorvastatin, carvedilol, and spironolactone. At present, she denies any chest pain, pressure, heaviness, shortness of breath, or heart palpitations. She remains active around the house and is able to climb stairs to the basement without difficulty. She does report occasional, random episodes of dizziness and lightheadedness that require her to sit down, but she denies any falls or fainting. Results - Echocardiogram (01/15/2024): Ejection fraction of 60-65%, impaired relaxation, and low normal RV systolic function. - Nuclear Stress Test (12/31/2023): Normal myocardial perfusion imaging. - Cardiac Catheterization (2015): Found a patent LOPEZ with competitive flow from the LAD and 70% stenosis of the proximal LAD.. [facility] Medical History Atherosclerotic cardiovascular disease Hypovitaminosis D Dyslipidemia Essential hypertension Diabetes mellitus Surgical History History of cataract surgery History of section History of laparoscopic cholecystectomy History of tubal ligation History of shoulder surgery S/P CABG x 1 Family History Father Diabetes Mother CVD (cardiovascular disease) Myocardial infarction Son No problems noted. Daughter No problems noted. Social History Alcohol intake: never Patient Tobacco Use Status: Never used Tobacco Cognitive needs: No Hearing needs: No Vision needs: No Review of Systems Const All systems reviewed & are unremarkable except as noted in HPI and below Denies chills, Denies fatigue, Denies fever(s), Denies frequent falls, Denies weakness, Denies weight gain and Denies weight loss ENT Reports dizziness (random times) Card Denies chest pain, Denies leg edema, Denies lightheadedness, Denies palpitations, Denies dyspnea and Denies dyspnea on exertion Resp Denies cough, Denies dyspnea and Denies dyspnea on exertion GI Denies hematochezia Musc Denies abnormal gait, Denies muscle weakness, Denies numbness, Denies radiating pain into limb and Denies tingling Neuro Denies abnormal gait, Reports dizziness (random times), Denies frequent falls, Denies numbness, Denies tingling and Denies weakness Endo Denies fatigue and Denies palpitations Physical Exam Vital Signs: BMI result Body Mass Index 33.3 Const General: cooperative, healthy appearing, comfortable and no acute distress Orientation/consciousness: patient oriented x3 Neck Neck: Yes normal visual inspection Resp Effort & Inspection: normal respiratory effort Auscultation: clear to auscultation bilaterally, no rales, no rhonchi and no wheezes Cardio Rate: regular rate Rhythm: regular rhythm Heart sounds: S1 normal heart sound present, S2 normal heart sound present, no gallops, no murmurs and no rubs Neuro General: patient oriented x3 Extrem General: Yes normal to inspection, No no pedal edema and No calf tenderness Psych Appearance: grossly normal Mental Status: mental status grossly normal Speech and movement: Normal speech and movement present Office Procedures EKG Details: Today, read by me, sinus rhythm T wave abnormality inferolateral leads, rate 70, Qtc 434ms [id number], Complete Assessment & Plan Assessment & Plan (1) Atherosclerotic cardiovascular disease: Code(s): I25.10 - Atherosclerotic heart disease of [employer] coronary artery without angina pectoris Category: Medical Plan: Hx CAD with single vessel CABG 2000, LOPEZ to diagonal to LAD. She has done well since that time. Catheterization in 2016 showed patent graft. Nuclear stress test 12/2023 showed normal perfusion imaging. An EKG done today does show sinus rhythm with T-wave abnormality in the inferior lateral leads, slight change from prior EKG. She is currently asymptomatic. Will hold off on further testing at present. Signs and symptoms of angina reviewed with her. Instructed to call this office if she is developing any new symptoms. Emergency care if ever needed. Continue atorvastatin with ideal LDL goal less than 70. Continue aspirin indefinitely. Continue carvedilol and Aldactone for good heart rate and blood pressure control. Will reach out to PCP office to get most recent lab work. Cardiology follow-up 6 months, sooner if needed. (2) S/P CABG x 1: Comment: 2000 Code(s): Z95.1 - Presence of aortocoronary bypass graft Category: Surgical Plan: As above (3) Essential hypertension: Code(s): I10 - Essential (primary) hypertension Category: Medical Plan: Blood pressure goal less than 130/80. At goal at present. No med changes made (4) Dyslipidemia: Code(s): E78.5 - Hyperlipidemia, unspecified Category: Medical Plan: [place] LDL goal less than 70. Will obtain labs from PCP office. Continue atorvastatin (5) MARSHALL (obstructive sleep apnea): Comment: on CPAP Code(s): G47.33 - Obstructive sleep apnea (adult) (pediatric) Category: Medical Plan: Compliant with CPAP Plan Discussion Notes I reviewed the patient's EKG, noting some subtle changes from her previous records. I explained that because she is not experiencing any symptoms, such as chest heaviness, squeezing, pressure, or increased shortness of breath, these changes are not currently concerning for an acute heart problem. We discussed that the plan will be to continue monitoring her, and I recommended a follow-up appointment in six months instead of one year. I advised her to contact our office to be seen sooner if any of those symptoms develop. Patient Instructions - Continue to take all of your current medications as prescribed. - Please schedule a follow-up appointment in our office in 6 months. - Contact our office to be seen sooner if you start to have any new symptoms, such as shortness of breath or any type of chest discomfort like pressure or heaviness. - If you feel dizzy or lightheaded, please sit down to avoid falling. Patient was informed and verbally consented to the use of an ambient scribe for clinic note documentation during this visit. Visit time spent on chart review, interview, assessment, orders, documentation. Coding Level of Care Code Est Pt Level 4 (05882) Add On Problem Visit Only Diagnoses Atherosclerotic cardiovascular disease I25.10 S/P CABG x 1 Z95.1 Essential hypertension I10 Dyslipidemia E78.5 MARSHALL (obstructive sleep apnea) G47.33 CPT Codes EKG - CPT: 98815-[id number], Complete ([id number]) Time Spent (min) 28
[2025-10-16 15:40] VITALS: BP 130/82; PULSE 70; BMI 33.3
--- OUTSIDE RECORDS SUMMARY | 2025-10-16 17:33 | XMS_ITS | Clinical Summary ---
Author Organization [address] [facility] Address [address] [place] [address] Phone Care Team Providers Care Tail Worker Name Role Phone Shireen Lao MD Primary Care Provider + Allergies Active Allergy Reactions Criticality Noted Date [...] Replace Required Details, Route to Pharmacy Electronically, [id number], 150, cm, 02/17/23 10:41:00 EDT, Height, 8... 3 Active dulaglutide (Trulicity) 1.5 mg/0.5 mL pen injector injection ADMINISTER 1.5 MG UNDER THE SKIN EVERY WEEK 1 Active Encounters Date Type Department Care Team Description 08/08/2025 1:30 PM EDT Office Visit Orthopedic Surgery - [place] [address] [place] [phone] Fredy Marshall, DPM Primary osteoarthritis of both feet (Primary Dx); Dermatophytosis of nail; Acquired hammer toe of right foot; Diabetic mononeuropathy simplex (CMS/HCC V24, CMS/HCC V28); Type II diabetes mellitus with peripheral circulatory disorder (CMS/HCC V24, CMS/HCC V28); Hammer toe of left foot; Tinea pedis of both feet; Pain in toe of left foot; Pain in toe of right foot from Last 3 Months Surgical History Surgery Date Site/Laterality Comments CHOLECYSTECTOMY PROCEDURE: [place] LAPAROSCOPY SURG CHOLECYSTECTOMY CARDIAC SURGERY PROCEDURE: HISTORICAL HEART SURGERY(ASD,VSD,VALVES) SHOULDER SURGERY PROCEDURE: HISTORICAL SHOULDER SURGERY SECTION PROCEDURE: HISTORICAL DELIVERY Medical History Medical History Date Comments Essential hypertension DX:Essent ial hypertension Diabetes mellitus type 2, co ntrolled, with complications (CMS/HCC V24, CMS/HCC V28) DX:Diabetes mellitus type 2, controlled, with complications ([facility]) Social History Tobacco Use Types Packs/Day Years [...] on file Sexual Orientation Not on file Last Filed Vital Signs Vital Sign Reading Time Taken Comments Blood Pressure 118/72 05/02/2025 5:52 PM EDT Pulse 72 05/02/2025 5:52 PM EDT Temperature 36.8 C (98.2 F) 05/02/2025 5:52 PM EDT Respiratory Rate 18 05/02/2025 5:52 PM EDT Oxygen Saturation 96% 05/02/2025 5:52 PM EDT Inhaled Oxygen Concentration - - Weight 83.5 kg (184 lb) 05/02/2025 2:54 PM EDT Height 149.9 cm (4' 11 ) 05/02/2025 2:54 PM EDT Body Mass Index 37.16 05/02/2025 2:54 PM EDT Plan of Treatment Upcoming Encounters Date Type Department Care Team (Late st Contact Info) Description 11/08/2025 1:30 PM EST Office Visit Orthopedic Surgery - [place] [address] [phone] Fredy Marshall, DPM [address] [phone] Health Maintenance Due Date Last Done Comments Breast Cancer Screening 1955 Colorectal Cancer Screening: Colonoscopy 1955 Diabetes: Annual Foot Exam 1963 Diabetes: Annual Retina Eye Exam 1963 RSV Immunization Adult Patients (1 - Risk 50-74 years 1-dose series) 2003 Zoster Vaccines (1 of 2) 2003 DTaP,Tdap,and Td Vaccines (3 - Td or Tdap) 06/20/2020 06/20/2010, 07/24/1998 Cholesterol Screening (Lipid Panel) 09/21/2022 Falls Risk Assessment 09/21/2022 Hepatitis C Screening 09/21/2022 Medicare Annual Wellness Visit 09/21/2022 Osteoporosis Screening (Bone Density Screening) 09/21/2022 Social Influencers of Health Screening 09/21/2022 Depression Screening 10/19/2024 Diabetes: Annual Urine Albumin-Creatinine Ratio (uACR) 10/25/2024 Diabetes: Blood Sugar Control Test (HGBA1C) 10/25/2024 COVID-19 Vaccine ( season) 2025 02/17/2022, 09/05/2021, 01/14/2021, Additional history exists Influenza Vaccine (#1) 2025 , 09/05/2021, 09/14/2019, Additional history exists Diabetes: Annual GFR (Glomerular Filtration Rate) 05/02/2026 05/02/2025 Hypertension/CHF/CAD Annual BMP Blood Test 05/02/2026 05/02/2025 MMR Vaccines Aged Out 07/24/1998 No longer [...] on patient's age to complete this topic Procedures Procedure Name Priority Date/Time Associated Diagnosis Comments BASIC METABOLIC PANEL STAT 05/02/2025 3:04 PM EDT from Last 3 Months or Most Recently Relevant to Health Maintenance Results * (ABNORMAL) Basic metabolic panel (05/02/2025 3:04 PM EDT) Sodium 140 133 - 145 mmol/L LAB CHEMISTRY METHOD 05/02/2025 3:41 PM T [facility] Potassium 4.1 3.5 - 5.5 mmol/L LAB CHEMISTRY METHOD 05/02/2025 3:41 PM [facility] Chloride 107 96 - 110 mmol/L LAB CHEMISTRY METHOD 05/02/2025 3:41 PM [facility] CO2 26 21 - 32 mmol/L LAB CHEMISTRY METHOD 05/02/2025 3:41 PM [facility] Anion Gap 7 3 - 11 LAB CHEMISTRY METHOD 05/02/2025 3:41 PM [facility] Glucose 142(H) 70 - 100 mg/dL LAB CHEMISTRY METHOD 05/02/2025 3:41 PM [facility] BUN 11 5 - 25 mg/dL LAB CHEMISTRY METHOD 05/02/2025 3:41 PM [facility] Creatinine 0.96 0.50 - 1.10 mg/dL LAB CHEMISTRY METHOD 05/02/2025 3:41 PM [facility] eGFR 63 >=60 mL/min/1. 73m2 LAB CHEMISTRY METHOD 05/02/2025 3:41 PM [facility] Comment:Calculation based on the Chronic Kidney Disease Epidemiology Collaboration (CKD-EPI) equation refit without adjustment for race. BUN/Creatinine Ratio 11.5 LAB CHEMISTRY METHOD 05/02/2025 3:41 PM T [facility] Calcium 9.3 8.5 - 10.5 mg/dL LAB CHEMISTRY METHOD 05/02/2025 3:41 PM [facility] Blood Venous blood specimen / Unknown Venipuncture / Unknown 05/02/2025 3:04 PM EDT 05/02/2025 3:14 PM EDT us Tara Yanez NP LAB BLOOD ORDERABLES Final Resu lt [facility] [address] [place] [address], from Last 3 Months or Most Recently Relevant to Health Maintenance Insurance MEDICAID - [place] MEDICARE Care Teams Tail Worker Relationship Specialty Start Date End Date Shireen Lao MD [id number] [place] [address] PCP - General Internal Medicine 05/02/25
--- OUTSIDE RECORDS SUMMARY | 2025-10-16 17:33 | XMS_ITS | Data Portability ---
Author Organization [place] - [facility], Allergy Address [address] [address] Care Team Providers Care Dean Of Women Name Role Phone CLEMENTE LINDQUIST Primary Care Provider [phone] Assessment No assessment recorded. Plan of Treatment [...] Name and Address Organization Details Recorded Time Sensorine ural hearing loss of bilateral ears 899052288 Active 2021 Sensorine ural hearing loss, bilateral ; Note: Date Diagnosed : 06/02/2022 2:36 PM (H90.3) Not Available [facility] 4 02:42:22 Mixed conductiv e and sensorine ural hearing loss of left ear 95065322397 107 Active 2022 Mixed conductiv e and [...] 2:50 PM (H90.A32) ; Start Date : Not Available [facility] 4 02:42:18 Sensorine ural hearing loss in right ear 10530866153 100 Active 2022 Sensorine ural hearing loss, unilatera l, right ear, with restricte d hearing on the contralat eral side; Note: Date Diagnosed : 06/01/2023 10:57 AM (H90.A21) Not Available [facility] 4 02:42:22 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 14175993 Active 2023 Otosclero sis involving oval window, obliterat jose antonio, left ear; Note: Changed from H80.92 to H80.12 (01/22/2024 8:34 AM) , Date Diagnosed : 11/24/2023 4:51 PM (H80.92) Not Available [facility] 4 02:42:23 Bilateral tympanosc lerosis 16069101947 005566 Active 2023 Tympanosc lerosis, bilateral ; Note: Date Diagnosed : 11/24/2023 4:51 PM (H74.03) Not Available [facility] 4 02:42:24 Follow-up visit Active 2023 Medical surveilla nce following completed treatment ; Note: Date Diagnosed : 01/29/2024 3:54 PM (Z09) Not Available [facility] 4 02:42:19 Tympanosc lerosis 55690831 Active 2023 YAMILE RIVERA MD [address] [place] [address], [place], [address] , [facility] - [facility] 4 11:54:31 Otosclero sis of ossicle of left ear 24227329779 12554 Active 2023 YAMILE RIVERA MD [address] [place] [address], [place], [address] , [facility] - [facility] 4 11:55:09 Mixed conductiv e AND sensorine ural hearing loss 36792444 Active 2023 EDMUNDO ARRIETA [address] [place] [address], [place], [address] , [facility] - [facility] 4 11:19:44 Problem Notes None recorded. Procedures Surgical History Date Name Laterality Status Provider Name and Address Organization Details Recorded Time 06/27/20 24 Comp Audio with Tymps - 01317 & 46103 completed AYE ALLEN, AUD [address] [facility] [address], [place], [address], [facility] - [facility] 06/27/2024 11:19:36 03/08/20 24 Air only Audio - 81299 completed KOFI GIPSON, AUD [address], [place], [address], [facility] - [facility] 03/08/2024 12:02:42 03/08/20 24 SRT & Speech Recognition - 32951 completed KOFI GIPSON, AUD [address] [facility],[address], [place], [address], [facility] - [facility] 03/08/2024 12:02:49 01/22/20 24 stapes operation completed Dona Morgan [facility] 03/08/2024 11:34:55 Imaging Results None recorded. Procedure Notes None recorded. Medical Equipment None Reported. Allergies Allergen ID Allergen Name Allergen Category Reaction Reaction Severity Criticality Documentation Date Start Date Code Code System Note Provider Name and Address Organization Details Recorded Time 407815 lisinopri l medicatio n Not available Not available Not available 03/08/2024 81096 RxNorm Dona espinoza [facility] 4 11:58:56 45595 Substance with sulfonami de structure and antibacte rial mechanism of action (substanc e) medicatio n other Not available Not available 03/01/2024 80098 8003 SNOMED React ion: Unkno wn; Not Available [facility] 4 01:04:14 Medications Name Sig Start Date [...] 24 hr 06/27 completed Medicati on ID: [id number] B rand Name: metoprol ol succinat e Send Method: E-Prescr ibed Sub s Allowed: subs OK Speci al Instruct ion: TAKE 1 TABLET BY MOUTH DAILY Me dication GenericN radha: metoprol ol succinat e Not Available Not Available Not Available metformin 850 mg tablet 06/27 completed Medicati on ID: [id number] B rand Name: metformi n Send Method: E-Prescr ibed Sub s Allowed: subs OK Speci al Instruct ion: TAKE 1 TABLET BY MOUTH THREE TIMES DAILY Me dication GenericN radha: metformi n Not Available Not Available Not Available spironola ctone 25 mg tablet active Not Available Not Available No t Available ketorolac 0.5 % eye drops 06/27 completed Medicati on ID: [id number] B rand Name: ketorola c Send Method: E-Prescr ibed Sub s Allowed: subs OK Medic ationGen ericName : ketorola c Not Available Not Available Not Available ciclopiro x 8 % topical solution 06/01 completed Medicati on ID: [id number] B rand Name: ciclopir ox Send Method: [...] 24 hr 06/27 completed Medicati on ID: [id number] B rand Name: nifedipi ne Send Method: E-Prescr ibed Sub s Allowed: subs OK Speci al Instruct ion: TAKE 1 TABLET BY MOUTH DAILY Me dication GenericN radha: nifedipi ne Not Available Not Available Not Available dorzolami de 22.3 mg-timolo l 6.8 mg/mL eye drops 06/01 completed Medicati on ID: [id number] B rand Name: dorzolam franny-sandrita lol Send [...] topical cream 06/01 completed Medicati on ID: [id number] B rand Name: ketocona zole Sen d [...] topical cream 06/01 completed Medicati on ID: [id number] B rand Name: clotrima zole Sen d Method: E-Prescr ibed Sub s Allowed: subs CIERRA [place] al Instruct ion: APPLY TOPICALL Y TO [...] e Short Pen Needle 31 gauge x 03/03 completed Medicati on ID: [id number] B rand Name: BD Ultra-Fi ne Short Pen Needle S end Method: E-Prescr ibed Sub s Allowed: subs OK Freddyi al Instruct ion: USE WITH LEVEMIR AND TRULICIT Y DIRECTED Medicat ionGener icName: BD Ultra-Fi ne Short Pen Needle Not Available Not Available Not Available diclofena c 1 % topical gel APPLY 4 GRAMS TOPICALL Y TO THE AFFECTED AREA TWICE DAILY 05/21 /2024 completed Not Available Not Available Not Available metformin ER 1,000 mg 24 hr tablet,ex tended release (gastric reten.) TAKE 1 TABLET BY MOUTH TWICE DAILY DUC TABLETA DOS VECES AL KOLBY 03/08 completed Not Available Not Available Not Available cholecalc iferol (vitamin D3) 50 mcg (2,000 unit) capsule active Medicati on ID: [id number] B rand Name: cholecal ciferol (vitamin D3) Send Method: E-Prescr ibed Sub s Allowed: subs OK Speci al Instruct ion: TAKE 1 CAPSULE BY MOUTH DAILY WITH FOOD Med icationG enericNa me: cholecal ciferol (vitamin D3) Not Available Not Available Not Available Antisepti c Skin Cleanser (chlorhex idine) 4 % liquid 06/01 completed Medicati on ID: [id number] B rand Name: Antisept ic Skin Clnsr(ch [...] Updated DateTime 03/08/2024 149.86 cm 36.4 kg/m2 95930.63 g Dona Morgan [place] - [facility] 03/08/2024 11:35:38 Social History None recorded. Functional Status None recorded. Mental Status None recorded. Family History Nothing Reported. Medical History Condition Response Diabetes Y Arthritis Y Sleep Disorder Y High Cholesterol Y Heart Attack (ID) Y Hypertension Y Glaucoma Y Asthma Y Gynecological HistoryNo gynecological history recorded. Obstetrics History GPAL:G 0 P 0 0 0 0 Past Encounters Encounter ID Performer Location Encounter Start Date Encounter Closed Date Diagnosis/Indication Diagnosis SNOMED-CT Code Diagnosis ICD10 Code Diagnosis IMO Codes Diagnosis Note [id number] YAMILE RIVERA MD [facility] [address] [address] 03/08/2024 11:22:32 03/08/2024 12:33:58 Tympanosclerosis 06162901 H74.02 Left ear has healed well following [...] Otoscleros is of ossicle of left ear 5975486618 928089 H80.92 Sensorineu ral hearing loss in right ear 0909051680 9100 H90.A21 Mixed cond uctive and sensorineural hearing loss of left ear 9568368947 9107 H90.A32 [id number] EDMUNDO AVALOS [facility] [place] [facility] 100 [place] [address] 03/08/2024 12:01:55 03/14/2024 20:11:12 Mixed conductive and sensorineural hearing loss of left ear 4622221255 9107 H90.A32 Mild to profound [place]. [id number] YAMILE RIVERA MD [facility] [address] [place] [address] 06/27/2024 10:36:27 06/27/2024 11:55:55 Tympanosclerosis 51482343 H74.02 Left ear has healed well following laser stapedotom y with vein graft. The hearing has improved even more postoperat ively with minimal residual conductive component on top of her baseline sensorineu ral hearing loss. While this is improved, she still has enough residual hearing loss that amplificat ion is still recommende d. She has hearing aids dispensed at [facility], so I have given her a copy of her latest audiograms and medical clearance to return to her audiologis t to ensure that her hearing aids are adjusted to match her current level of hearing loss. She may follow-up as needed Otoscleros is of ossicle of left ear 4702352734 540716 H80.92 Sensorineu ral hearing loss in right ear 6798827672 9100 H90.A21 Mixed cond uctive and sensorineural hearing loss of left ear 5649537480 9107 H90.A32 Audiologic al evaluation results:Ri ght ear:DNTLef t ear:Mild to profound mixed hearing loss with excellent word recognitio n.Tympanom etry:Right Ear:DNTLef t Ear:Type A [id number] EDMUNDO ARRIETA [facility] [address] [address] 06/27/2024 11:18:56 06/29/2024 11:32:08 Mixed conductive AND sensorineural hearing loss 11297343 H90.A32 Audiologic al evaluation results:Ri ght ear:DNTLef t ear:Mild to profound mixed hearing loss with excellent word recognitio n.Tympanom etry:Right Ear:DNTLef t Ear:Type A Health Concerns Section Related Observation LastModified by Organization Detai ls LastModified Time None Recorded Concern Status LastModified by Organization Details LastModified Time None Recorded Advance Directives Directive None Recorded Payers Insurance Date Sequence Insurance Name Policy Number Policy Arango Covered Member ID Arango Member ID Guarantor Name 06/27/2024 2 [place] [facility] [id number] [facility] 06/27/2024 1 [place] [employer] Rossy Darion [id number] [facility] Notes Date Note Type Note Provider Name [...] not seem normal. YAMILE RIVERA MD [address] [place] [address], [address], [facility] - [facility] 03/08/2024 12:23:45 06/27/2024 text/html Status post [...] improvement. She reports hearing much better at mu-ism. She comes in today accompanied by her daughter who is helping to translate Micronesian YAMILE RIVERA MD [address] [facility],[place] [address], [place], [address], [place] - [facility] 06/27/2024 11:53:46 06/27/2024 text/html Feels she is hearing better EDMUNDO ARRIETA [address] [facility],[place] [address], [place], [address], [place] - [facility] 06/27/2024 11:20:21 OBGyn Episode No OBEpisode recorded.
== END 2025-10-16 16:01 | disposition home or self-care (01) ==
PROVIDERS: PCP Internal Medicine; Visit Provider Nurse Practitioner Family
DX: I25.10 Atherosclerotic heart disease of native coronary artery without angina pectoris (principal); Z95.1 Presence of aortocoronary bypass graft; I10 Essential (primary) hypertension; E78.5 Hyperlipidemia, unspecified; G47.33 Obstructive sleep apnea (adult) (pediatric)
CPT/HCPCS: 93010; 99214; G2211

== ENCOUNTER → 2025-10-16 15:30 | Outpatient (BNVA) | payer MEDICARE, MEDICAID, SELFPAY | PROVIDERS: PCP Nurse Practitioner Family; Visit Provider Nurse Practitioner Family | DX: I25.10 Atherosclerotic heart disease of native coronary artery without angina pectoris (principal); I10 Essential (primary) hypertension; I66.12 Occlusion and stenosis of left anterior cerebral artery; E78.5 Hyperlipidemia, unspecified; G47.33 Obstructive sleep apnea (adult) (pediatric); Z95.1 Presence of aortocoronary bypass graft | CPT/HCPCS: 93005; 99212 ==